=== PATIENT | male | born 1995 | race Two or more races ===

== ENCOUNTER 2017-03-04 19:45 | Emergency (ER) | payer MEDICAID ==
[~2017-03-04] VITALS: Ht 182.9 cm; Wt 141.5 kg
[~2017-03-04 19:45] MED LIST: ADEMPAS2.5 MG PO; AMOX TR-K CLV1 EAC2 ORAL; AMOXICILLIN125 MG ORAL; B COMPLEX1 EACH ORAL; BACTRIM DS TAB1 EAC1 ORAL; CIPRO500 MG PO; FONDAPARIN10 MG/0.8 SQ; GENTAMICIN SUL3.5 GM OP; IBUPROFEN600 MG ORAL; KEFLEX500 MG ORAL; NKM; ONDANSETRON ODT4 MG ORAL; PERCOCET 5-3251 EACH ORAL; PLAQUENIL200 MG ORAL
[2017-03-04] MEDS ORDERED: BACLOFEN10 MG ORAL (20:23)
[2017-03-04 20:30] VITALS: BP 153/91
[2017-03-04] MEDS ORDERED: Lidocaine 1% MPF 10mg/ml 5ml INJ ONE (20:30)
--- NOTE | 2017-03-04 20:30 | Emergency Room Report ---
History of Present Illness General Chief Complaint: Skin Rash/Abscess Source: Patient Present Illness HPI Patient's 21-year-old male who presented after increased right axillary abscess. The patient gradual onset of symptoms. Patient noted have no fever. He states he is diabetic. Patient had slightly increased pain. Patient been using warm compresses. He denied any purulent drainage. Allergies: Coded Allergies: No Known Allergies (Unverified , 08/11/12) Patient History Past Medical History: see triage record Reviewed Nursing Documentation: PMH: Agreed, PSxH: Agreed Nursing Documentation-PMH Past Medical History: No History, Except For Hx Cardiac Problems: Yes - LUPUS, CHF Hx Hypertension: Yes - PULMONARY HYPERTENTION Review of Systems All Other Systems: negative except mentioned in HPI Physical Exam Vital Signs Date Time Temp Pulse Resp B/P Pulse Ox O2 Delivery O2 Flow Rate FiO2 03/04/17 20:18 98.8 78 22 153/91 97 Room Air General Appearance: well appearing, no apparent distress Head: normocephalic, atraumatic ENT: hearing grossly normal, normal voice Neck: full range of motion, supple Respiratory: no respiratory distress, speaking full sentences Musculoskeletal: no calf tenderness Neurologic: normal gait Psychiatric: mood/affect normal Skin: no rash Procedures Incision and Drainage Incision and Drainage : Consent: Verbal Site: right axilla Blade Size: 11 I & D Procedure: betadine prep Wound Location: axilla Wound's Depth, Shape: superficial Wound Length (cm): 1 Wound Explored: clean Anesthesia: 1% Lidocaine Volume Anesthetic (ccs): 5 Splint Applied?: No Sling Applied?: No Patient Tolerated: Well Complications: None Medical Decision Making Diagnostic Impression: Primary Impression: Axillary abscess ER Course Patient presented for skin rash. Differential diagnosis included was not limited to abscess, cellulitis, folliculitis. Patient's benign exam and does not appear to require any further imaging or laboratory testing at this time. The patient consented for incision and drainage. Drained purulent material. The patient is advised to follow up with primary care doctor in 1-2 days. Patient is advised to return if any worsening condition or if any changes in status that are concerning. Last Vital Signs Date Time Temp Pulse Resp B/P Pulse Ox O2 Delivery O2 Flow Rate FiO2 03/04/17 20:18 98.8 78 22 153/91 97 Room Air Scripts Trimethoprim/Sulfamethoxazole 160/800* (BACTRIM DS TABLET*) 1 Each Tablet 1 TAB ORAL Q12H, #14 TAB 0 Refills Prov: Mumtaz Faustin 03/04/17 Cephalexin* (KEFLEX*) 500 Mg Capsule 500 MG ORAL Q6H, #28 CAP 0 Refills Prov: Mumtaz Faustin 03/04/17 Mumtaz Faustin Mar 04, 2017 20:30
[2017-03-04] MEDS ORDERED: Lidocaine 1% Plain 30 ml INJ ONE (20:31)
[2017-03-04] MEDS ORDERED: KEFLEX500 MG ORAL (20:40)
[2017-03-04] MEDS ORDERED: BACTRIM DS TAB1 EAC1 ORAL (20:40)
[2017-03-04 21:30] VITALS: BP 148/84
== END 2017-03-04 21:30 | disposition home or self-care (01) ==
LOC: EMR 20:33
DX: L02.411 Cutaneous abscess of right axilla (principal); M32.9 Systemic lupus erythematosus, unspecified
CPT/HCPCS: 10060; 99284; J2001

== ENCOUNTER 2017-04-19 23:58 | Emergency (ER) | payer MEDICAID ==
[~2017-04-19] VITALS: Ht 182.9 cm; Wt 141.5 kg
[~2017-04-19 23:58] MED LIST changes: +BACLOFEN10 MG ORAL
[2017-04-20] MEDS ORDERED: FONDAPARIN2.5 MG/0.5 SQ (00:14)
[2017-04-20] MEDS ORDERED: BACTRIM DS TAB1 EAC1 ORAL (00:49)
[2017-04-20] MEDS ORDERED: ACETAMINOPHEN-1 EAC1 ORAL (00:49)
[2017-04-20 00:55] VITALS: BP 113/75
[2017-04-20 00:58] VITALS: BP 113/75
--- NOTE | 2017-04-20 00:58 | Emergency Room Report ---
History of Present Illness General Chief Complaint: Skin Rash/Abscess Source: Patient Present Illness HPI 21YOM walk-in with pain/swelling and "boil" to left lower leg Histor of multiple visits here for abscesses Denies trauma to area Denies fever/chills Denies history of DM Allergies: Coded Allergies: No Known Allergies (Unverified , 08/11/12) Patient History Past Medical History: none Past Surgical History: none Pertinent Family History: none Social History: Denies: smoking, alcohol use, drug use Immunizations: UTD Reviewed Nursing Documentation: PMH: Agreed, PSxH: Agreed Nursing Documentation-PMH Past Medical History: No History, Except For Hx Cardiac Problems: No - PE, Pulmonary HTN, DVT left leg Hx Hypertension: Yes Hx Pacemaker: No - Antiphospholipid syndrome Review of Systems All Other Systems: negative except mentioned in HPI Physical Exam Vital Signs Date Time Temp Pulse Resp B/P (MAP) Pulse Ox O2 Delivery O2 Flow Rate FiO2 04/20/17 00:06 98.2 128 15 113/75 98 Room Air Sp02 EP Interpretation: reviewed, normal General Appearance: normal inspection, well appearing, no apparent distress, alert, GCS 15, non-toxic Head: normocephalic, atraumatic Eyes: bilateral eye PERRL, bilateral eye EOMI ENT: normal ENT inspection, hearing grossly normal, normal voice Neck: normal inspection, full range of motion, supple, no bony tend Respiratory: normal inspection, lungs clear, normal breath sounds, no respiratory distress, no retraction, no wheezing Cardiovascular #1: regular rate, rhythm, no edema Gastrointestinal: normal inspection, normal bowel sounds, non tender, soft, no guarding, no hernia Genitourinary: no CVA tenderness Musculoskeletal: normal inspection, back normal, normal range of motion, Tomás' s Sign negative Neurologic: normal inspection, alert, oriented x3, 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 Medical Decision Making Diagnostic Impression: Primary Impression: Cellulitis Qualified Codes: L03.116 - Cellulitis of left lower limb ER Course Cellulitis vs early abscess less likely Rx bactrim Initial dose given in ED Encouraged hot compress PMD followup DC home Last Vital Signs Date Time Temp Pulse Resp B/P (MAP) Pulse Ox O2 Delivery O2 Flow Rate FiO2 04/20/17 00:06 98.2 128 15 113/75 98 Room Air Status: improved Disposition: HOME, SELF-CARE Condition: Improved Scripts Acetaminophen With Codeine (T#3) (TYLENOL #3 TAB*) Y Tab 1 TAB ORAL Q8H Y for For Pain, #20 TAB Prov: AQUILES MATTSON M.D. 04/20/17 Trimethoprim/Sulfamethoxazole 160/800* (BACTRIM DS TABLET*) 1 Each Tablet 1 TAB ORAL Q12H for 7 Days, #13 TAB 0 Refills Prov: AQUILES MATTSON M.D. 04/20/17 Patient Instructions: Cellulitis, [id number] Additional Instructions: - Take all antibiotics until finished - Take T#3 as needed for severe pain - Keep applying warm compress towel to area 3x a day AQUILES MATTSON M.D. Apr 20, 2017 00:58
[2017-04-20] MEDS ORDERED: Bactrim DS (160mg/800mg) tab ORAL ONE (01:00)
[2017-04-20] MEDS ORDERED: Tylenol #3 tab (300mg/30mg) ORAL ONE (01:00)
== END 2017-04-20 00:58 | disposition home or self-care (01) ==
LOC: EMR 04-20 00:47
DX: L03.116 Cellulitis of left lower limb (principal); I10 Essential (primary) hypertension; Z86.718 Personal history of other venous thrombosis and embolism
CPT/HCPCS: 99284

== ENCOUNTER 2018-02-23 10:15 | Emergency (ER) | payer MEDICAID ==
[~2018-02-23] VITALS: Ht 182.9 cm; Wt 144.2 kg
[~2018-02-23 10:15] MED LIST changes: +ACETAMINOPHEN-1 EAC1 ORAL; +FONDAPARIN2.5 MG/0.5 SQ
[2018-02-23 10:28] VITALS: BP 142/84
[2018-02-23] MEDS ORDERED: Lidocaine 1% MPF 10mg/ml 5ml INJ ONE (10:45)
--- NOTE | 2018-02-23 11:32 | Emergency Room Report ---
History of Present Illness General Chief Complaint: Skin Rash/Abscess Source: Patient, Medical Record Present Illness HPI This patient states that he developed a pimple-like lesion at the entrance to his right nostril. He states that it did have a head. He states that yesterday it drained a small amount of pus. He states that since that time he has a fullness in his upper leg and face. He states that it is very tender. He states he doesn't feel well. He denies fever or chills. He denies nausea or vomiting. Denies headache or neck pain. He has no other complaints. Allergies: Coded Allergies: No Known Allergies (Unverified , 08/11/12) Patient History Past Medical History: see triage record, other - Antiphospholipid syndrome, PE , DVT Social History: Denies: smoking, alcohol use, drug use Reviewed Nursing Documentation: PMH: Agreed; PSxH: Agreed Nursing Documentation-PMH Past Medical History: No History, Except For Hx Cardiac Problems: No - PE, Pulmonary HTN, DVT left leg Hx Hypertension: Yes Hx Pacemaker: No - Antiphospholipid syndrome Review of Systems All Other Systems: negative except mentioned in HPI Physical Exam Vital Signs Date Time Temp Pulse Resp B/P (MAP) Pulse Ox O2 Delivery O2 Flow Rate FiO2 02/23/18 10:16 99.1 99 18 142/84 95 Room Air 99.1 Sp02 EP Interpretation: reviewed, normal General Appearance: no apparent distress, alert, GCS 15, non-toxic Head: normocephalic, atraumatic Eyes: bilateral eye normal inspection, bilateral eye PERRL ENT: hearing grossly normal, normal pharynx, no angioedema, normal voice, other - Indurated area with a small amount of swelling at the R. nare and upper lip. TTP. Firm, no fluctuance. No erythema. Neck: full range of motion, supple/symm/no masses Respiratory: chest non-tender, lungs clear, normal breath sounds, no respiratory distress, no retraction, no accessory muscle use, speaking full sentences Cardiovascular #1: regular rate, rhythm, no edema Gastrointestinal: normal bowel sounds, non tender, soft, non-distended, no guarding, no rebound Rectal: deferred Musculoskeletal: back normal, gait/station normal, normal range of motion, non- tender Neurologic: alert, oriented x3, responsive, motor strength/tone normal, sensory intact, speech normal Psychiatric: judgement/insight normal, memory normal, mood/affect normal, no suicidal/homicidal ideation Skin: warm/dry, well hydrated, other - See ENT exam Lymphatic: no adenopathy Procedures Incision and Drainage Incision and Drainage : Consent: Verbal Site: Just at the entrance to the R. nare I & D Procedure: betadine prep Wound Location: head Anesthesia: 1% Lidocaine Volume Anesthetic (ccs): 1 Complications: None Progress An 18-gauge needle was used for a needle aspiration, which I chose secondary to the location on the patient's face for cosmetic reasons. The needle aspiration expressed nothing. Medical Decision Making Diagnostic Impression: Primary Impression: Cellulitis ER Course Patient has an area under a pimple that appears slightly swollen. There could be a mild cellulitis, although, there is no erythema or warmth. I did attempt a needle aspiration and there was no purulence. I educated the patient on the importance of warm compresses. I will start the patient on a course of antibiotics. The patient is also instructed to follow-up closely with his primary care physician. The patient is given close return precautions and f/u instructions. Last Vital Signs Date Time Temp Pulse Resp B/P (MAP) Pulse Ox O2 Delivery O2 Flow Rate FiO2 02/23/18 10:28 99.1 18 142/84 95 Room Air 99.1 02/23/18 10:16 99 Status: improved Condition: Improved Referrals: [facility],REFERRING (PCP) Maya Morales DO Feb 23, 2018 11:32
[2018-02-23] MEDS ORDERED: IBUPROFEN800 MG ORAL (11:35)
[2018-02-23] MEDS ORDERED: DOXYCYCLINE MO100 MG ORAL (11:35)
[2018-02-23 11:41] VITALS: BP 131/82
== END 2018-02-23 11:44 | disposition home or self-care (01) ==
LOC: EMR 10:30
DX: J34.0 Abscess, furuncle and carbuncle of nose (principal); I10 Essential (primary) hypertension; Z86.718 Personal history of other venous thrombosis and embolism
CPT/HCPCS: 10021; 99283; Z7502; 10060

== ENCOUNTER 2020-01-17 11:49 | Inpatient (IN) | payer MEDICAID ==
[~2020-01-17] VITALS: Ht 180.3 cm; Wt 142.0 kg
[~2020-01-17 11:49] MED LIST changes: +DOXYCYCLINE MO100 MG ORAL; +IBUPROFEN800 MG ORAL
[2020-01-17 12:00] VITALS: BP 148/98
[2020-01-17 12:51] LABS: ANION GAP 13 mmol/L (5-15); BLOOD UREA NITROGEN 9 mg/dL (7-18); CALCIUM 8.9 MG/DL (8.5-10.1); CARBON DIOXIDE 21 MMOL/L (21-32); CHLORIDE 106 MMOL/L (98-107); CREATININE 1.1 MG/DL (0.55-1.30); POTASSIUM 3.8 MMOL/L (3.5-5.1); SODIUM 140 MMOL/L (136-145)
[2020-01-17] MEDS ORDERED: Omnipaque 350 100ml vial INJ PRN (13:00)
[2020-01-17 13:02] LABS: ALANINE AMINOTRANSFERASE 98 U/L (12-78); ALBUMIN 3.9 G/DL (3.4-5.0); ALBUMIN/GLOBULIN RATIO 1.1 (1.0-2.7); ALKALINE PHOSPHATASE 64 U/L (46-116); ASPARTATE AMINO TRANSFERASE 62 U/L (15-37); BILIRUBIN,TOTAL 2.2 MG/DL (0.2-1.0); CREATINE KINASE 173 U/L (26-308)
[2020-01-17 13:07] LABS: APPEARANCE,URINE CLEAR; BILIRUBIN, URINE NEGATIVE (NEGATIVE); GLUCOSE, URINE (UA) NEGATIVE (NEGATIVE); KETONES,URINE NEGATIVE (NEGATIVE); LEUKOCYTE ESTERASE ,URINE 1+ (NEGATIVE); NITRITE,URINE NEGATIVE (NEGATIVE); PH,URINE 6 (4.5-8.0); PROTEIN,URINE 3+ (NEGATIVE); UROBILINOGEN,URINE 4 MG/DL (0.0-1.0)
[2020-01-17 13:10] LABS: INR 1.2 (0.9-1.1)
[2020-01-17 13:11] LABS: EOSINOPHILS % (AUTO) 0.3 % (0.0-3.0); HEMATOCRIT 50.6 % (42.0-52.0); MEAN CORPUSCULAR VOLUME 97 FL (80-99); MONOCYTES % (AUTO) 6.7 % (1.0-10.0); PLATELET COUNT 127 K/UL (150-450); RED CELL DISTRIBUTION WIDTH 13.4 % (11.6-14.8); WHITE BLOOD COUNT 10.2 K/UL (4.8-10.8)
[2020-01-17 13:13] LABS: COLOR,URINE YELLOW
--- NOTE | 2020-01-17 14:01 | Diagnostic Imaging Report ---
. Indication: Reason For Exam: CP Technique: XRAY Chest 1v. Comparison: 01/26/2016 Findings: The cardiomediastinal silhouette is stable. There are no acute infiltrates. Impression: No acute abnormality. .
--- NOTE | 2020-01-17 14:05 | Emergency Room Report ---
History of Present Illness General Chief Complaint: Chest Pain Source: Patient (Maya Morales DO) Present Illness HPI This patient states that for the past few weeks he has had shortness of breath. He states his symptoms are worse with exertion. He states he is also had chest tightness. He had an episode of nausea yesterday after climbing stairs. He denies recent illness. He denies fever or chills. He denies nausea or vomiting. He denies cough or congestion. He does have a history of antiphospholipid syndrome and is on Lovenox for a previously diagnosed PE and DVT. This was several years ago. He has no other complaints. 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: No (Maya Morales DO) Patient History Past Medical History: see triage record, HTN, other - PE, DVT, antiphospholipid syndrome Social History: Reports: drug use - THC; Denies: smoking, alcohol use Reviewed Nursing Documentation: PMH: Agreed; PSxH: Agreed (Maya Morales DO) Nursing Documentation-PMH Hx Cardiac Problems: No - PE, Pulmonary HTN, DVT left leg Hx Hypertension: Yes Hx Pacemaker: No - Antiphospholipid syndrome (Maya Morales DO) Review of Systems All Other Systems: negative except mentioned in HPI (Maya Morales DO) Physical Exam Vital Signs Date Time Temp Pulse Resp B/P (MAP) Pulse Ox O2 Delivery O2 Flow Rate FiO2 01/17/20 11:56 98.2 111 22 141/100 (114) 93 Room Air Sp02 EP Interpretation: reviewed, normal General Appearance: no apparent distress, alert, GCS 15, non-toxic, obese Head: normocephalic, atraumatic Eyes: bilateral eye normal inspection, bilateral eye PERRL ENT: hearing grossly normal, normal pharynx, no angioedema, normal voice Neck: full range of motion, supple/symm/no masses Respiratory: chest non-tender, lungs clear, normal breath sounds, no respiratory distress, no retraction, no accessory muscle use, speaking full sentences Cardiovascular #1: regular rate, rhythm, no edema Gastrointestinal: normal bowel sounds, non tender, soft, non-distended, no guarding, no rebound Rectal: deferred Musculoskeletal: back normal, normal range of motion, gait/station normal, non- tender Neurologic: alert, motor strength/tone normal, oriented x3, sensory intact, responsive, speech normal Psychiatric: judgement/insight normal, memory normal, mood/affect normal, no suicidal/homicidal ideation Skin: no rash, normal color (Maya Morales DO) Procedures Critical Care Time Critical Care Time 70 minutes for critical findings concerning for acute decompensation respiratory failure not including any procedural time (Arcenio Garcia DO) Medical Decision Making Diagnostic Impression: Primary Impression: Bilateral pulmonary embolism ER Course This patient presents with chest pain and shortness of breath. He has high risk for acute coronary syndrome, PE. He also presents during this patient was evaluated in the context of the global COVID-19 pandemic, which necessitated consideration that the patient might be at risk for infection with the SARS- COVID-2 virus that causes COVID-19. Institutional protocols and algorithms that pertain to the evaluation of patients at risk for COVID-19 and the state of rapid change based on information released by multiple regulatory bodies including the CDC and federal and state organizations. These policies and algorithms were followed during the patient's care in the ED. also concerning is the patient had an abnormal EKG that was nonspecific but still concerning for possible cardiac or pulmonary etiology of his symptoms. At this time, the patient is pending CT of the chest. The patient is turned over to Dr. Garcia. Final disposition is pending. I anticipate at the very least admit to rule out acute coronary syndrome even if the CT is negative. Laboratory Tests Test 01/17/20 12:13 01/17/20 12:29 White Blood Count 10.2 K/UL (4.8-10.8) Red Blood Count 5.20 M/UL (4.70-6.10) Hemoglobin 16.0 G/DL (14.2-18.0) Hematocrit 50.6 % (42.0-52.0) Mean Corpuscular Volume 97 FL (80-99) Mean Corpuscular Hemoglobin 30.7 PG (27.0-31.0) Mean Corpuscular Hemoglobin Concent 31.5 G/DL (32.0-36.0) L Red Cell Distribution Width 13.4 % (11.6-14.8) Platelet Count 127 K/UL (150-450) L Mean Platelet Volume 8.6 FL (6.5-10.1) Neutrophils (%) (Auto) 73.0 % (45.0-75.0) Lymphocytes (%) (Auto) 19.0 % (20.0-45.0) L Monocytes (%) (Auto) 6.7 % (1.0-10.0) Eosinophils (%) (Auto) 0.3 % (0.0-3.0) Basophils (%) (Auto) 1.0 % (0.0-2.0) Prothrombin Time 13.3 SEC (9.30-11.50) H Prothrombin Time INR 1.2 (0.9-1.1) H Activated Partial Thromboplast Time 34 SEC (23-33) H D-Dimer 2.43 mg/L FEU (0.00-0.49) H Sodium Level 140 MMOL/L (136-145) Potassium Level 3.8 MMOL/L (3.5-5.1) Chloride Level 106 MMOL/L (98-107) Carbon Dioxide Level 21 MMOL/L (21-32) Anion Gap 13 mmol/L (5-15) Blood Urea Nitrogen 9 mg/dL (7-18) Creatinine 1.1 MG/DL (0.55-1.30) Estimated Glomerular Filtration Rate > 60 mL/min (>60) Glucose Level 117 MG/DL (74-106) H Calcium Level 8.9 MG/DL (8.5-10.1) Total Bilirubin 2.2 MG/DL (0.2-1.0) H Direct Bilirubin Pending Aspartate Amino Transferase (AST) 62 U/L (15-37) H Alanine Aminotransferase (ALT) 98 U/L (12-78) H Alkaline Phosphatase 64 U/L (46-116) Total Creatine Kinase 173 U/L (26-308) Troponin I 0.012 ng/mL (0.000-0.056) C-Reactive Protein, Quantitative 4.0 mg/dL (0.00-0.90) H Total Protein 7.4 G/DL (6.4-8.2) Albumin 3.9 G/DL (3.4-5.0) Globulin 3.5 g/dL Albumin/Globulin Ratio 1.1 (1.0-2.7) Urine Color Yellow Urine Appearance Clear Urine pH 6 (4.5-8.0) Urine Specific [place] 1.015 (1.005-1.035) Urine Protein 3+ (NEGATIVE) H Urine Glucose (UA) Negative (NEGATIVE) Urine Ketones Negative (NEGATIVE) Urine Blood Negative (NEGATIVE) Urine Nitrite Negative (NEGATIVE) Urine Bilirubin Negative (NEGATIVE) Urine Urobilinogen 4 MG/DL (0.0-1.0) H Urine Leukocyte Esterase 1+ (NEGATIVE) H Urine RBC 0 /HPF (0 - 0) Urine WBC 0-2 /HPF (0 - 0) Urine Squamous Epithelial Cells Occasional /LPF Urine Bacteria Occasional /HPF (NONE) Urine Mucus Occasional /LPF Urine Opiates Screen Negative (NEGATIVE) Urine Barbiturates Screen Negative (NEGATIVE) Phencyclidine (PCP) Screen Negative (NEGATIVE) Urine Amphetamines Screen Negative (NEGATIVE) Urine Benzodiazepines Screen Negative (NEGATIVE) Urine Cocaine Screen Negative (NEGATIVE) Urine Marijuana (THC) Screen Positive (NEGATIVE) H (Maya Morales DO) ER Course Please refer to the initial note for the history exam and presentation Patient was pending CT imaging at this time I do get a call from radiology patient does have bilateral pulmonary emboli with right heart strain Patient remains hemodynamically stable saturating appropriately Patient is on 2 L nasal cannula heparin bolus and drip have been initiated Patient upgraded to higher level of care inpatient Labs Test 01/17/20 12:13 01/17/20 12:29 White Blood Count 10.2 K/UL (4.8-10.8) Red Blood Count 5.20 M/UL (4.70-6.10) Hemoglobin 16.0 G/DL (14.2-18.0) Hematocrit 50.6 % (42.0-52.0) Mean Corpuscular Volume 97 FL (80-99) Mean Corpuscular Hemoglobin 30.7 PG (27.0-31.0) Mean Corpuscular Hemoglobin Concent 31.5 G/DL (32.0-36.0) Red Cell Distribution Width 13.4 % (11.6-14.8) Platelet Count 127 K/UL (150-450) Mean Platelet Volume 8.6 FL (6.5-10.1) Neutrophils (%) (Auto) 73.0 % (45.0-75.0) Lymphocytes (%) (Auto) 19.0 % (20.0-45.0) Monocytes (%) (Auto) 6.7 % (1.0-10.0) Eosinophils (%) (Auto) 0.3 % (0.0-3.0) Basophils (%) (Auto) 1.0 % (0.0-2.0) Prothrombin Time 13.3 SEC (9.30-11.50) Prothromb Time International Ratio 1.2 (0.9-1.1) Activated Partial Thromboplast Time 34 SEC (23-33) D-Dimer 2.43 mg/L FEU (0.00-0.49) Sodium Level 140 MMOL/L (136-145) Potassium Level 3.8 MMOL/L (3.5-5.1) Chloride Level 106 MMOL/L (98-107) Carbon Dioxide Level 21 MMOL/L (21-32) Anion Gap 13 mmol/L (5-15) Blood Urea Nitrogen 9 mg/dL (7-18) Creatinine 1.1 MG/DL (0.55-1.30) Estimat Glomerular Filtration Rate > 60 mL/min (>60) Glucose Level 117 MG/DL (74-106) Calcium Level 8.9 MG/DL (8.5-10.1) Total Bilirubin 2.2 MG/DL (0.2-1.0) Direct Bilirubin 0.6 MG/DL (0.0-0.3) Aspartate Amino Transf (AST/SGOT) 62 U/L (15-37) Alanine Aminotransferase (ALT/SGPT) 98 U/L (12-78) Alkaline Phosphatase 64 U/L (46-116) Total Creatine Kinase 173 U/L (26-308) Troponin I 0.012 ng/mL (0.000-0.056) C-Reactive Protein, Quantitative 4.0 mg/dL (0.00-0.90) Total Protein 7.4 G/DL (6.4-8.2) Albumin 3.9 G/DL (3.4-5.0) Globulin 3.5 g/dL Albumin/Globulin Ratio 1.1 (1.0-2.7) Urine Color Yellow Urine Appearance Clear Urine pH 6 (4.5-8.0) Urine Specific [place] 1.015 (1.005-1.035) Urine Protein 3+ (NEGATIVE) Urine Glucose (UA) Negative (NEGATIVE) Urine Ketones Negative (NEGATIVE) Urine Blood Negative (NEGATIVE) Urine Nitrite Negative (NEGATIVE) Urine Bilirubin Negative (NEGATIVE) Urine Urobilinogen 4 MG/DL (0.0-1.0) Urine Leukocyte Esterase 1+ (NEGATIVE) Urine RBC 0 /HPF (0 - 0) Urine WBC 0-2 /HPF (0 - 0) Urine Squamous Epithelial Cells Occasional /LPF Urine Bacteria Occasional /HPF (NONE) Urine Mucus Occasional /LPF Urine Opiates Screen Negative (NEGATIVE) Urine Barbiturates Screen Negative (NEGATIVE) Phencyclidine (PCP) Screen Negative (NEGATIVE) Urine Amphetamines Screen Negative (NEGATIVE) Urine Benzodiazepines Screen Negative (NEGATIVE) Urine Cocaine Screen Negative (NEGATIVE) Urine Marijuana (THC) Screen Positive (NEGATIVE) (Arcenio Garcia DO) EKG Diagnostic Results Rate: tachycardiac - S.tachycardia ST Segments: other - NSST findings. Qwave in III (Maya Morales [facility]) Rhythm Strip Diag. Results EP Interpretation: yes Rate: 90's Rhythm: NSR, no PVC's, no ectopy (Maya Morales Narendra ) EP Interpretation: yes Rate: 110 Rhythm: no PVC's, no ectopy, other - Sinus tach nonspecific ST changes (Arcenio Garcia DO) Chest X-Ray Diagnostic Results Chest X-Ray Diagnostic Results : Chest X-Ray Ordered: Yes # of Views/Limited/Complete: 1 View Indication: Chest Pain EP Interpretation: Yes Interpretation: no consolidation, no effusion, no pneumothorax, no acute cardiopulmonary disease Impression: No acute disease Electronically Signed by: Maya Morales DO ([facility]) Chest X-Ray Diagnostic Results : Chest X-Ray Ordered: Yes # of Views/Limited/Complete: 1 View Indication: Chest Pain EP Interpretation: Yes Interpretation: no consolidation, no effusion, no pneumothorax Impression: No acute disease Electronically Signed by: Arcenio Garcia DO (Arcenio Garcia DO) CT/MRI/US Diagnostic Results CT/MRI/US Diagnostic Results : Imaging Test Ordered: CTA Chest Impression Pending. (Maya Morales DO) CT/MRI/US Diagnostic Results : Impression CTA chestImpression: Extensive bilateral pulmonary emboli with evidence of right heart strain. Scarring or atelectasis in the left upper lobe. Scarring or atelectasis in the right base. Small superior mediastinal lymph nodes, significance uncertain. (Arcenio Garcia DO) Last Vital Signs Date Time Temp Pulse Resp B/P (MAP) Pulse Ox O2 Delivery O2 Flow Rate FiO2 01/17/20 12:00 98.2 118 20 148/98 95 Room Air (Maya Morales DO) Status: improved (Arcenio Garcia DO) Disposition: ADMITTED INPATIENT Condition: Critical Referrals: NON PHYSICIAN (PCP) Maya Morales DO Jan 17, 2020 14:05 Arcenio Garcia DO Jan 17, 2020 16:07
[2020-01-17 14:09] LABS: BILIRUBIN,DIRECT 0.6 MG/DL (0.0-0.3)
[2020-01-17 15:49] VITALS: BP 138/92
[2020-01-17] MEDS ORDERED: Heparin 25,000u/D5W 500ml 500 ML IV SCH ×2 (16:00→19:15)
[2020-01-17] MEDS ORDERED: Heparin 5000 units/ml inj IV ONE (16:00)
--- NOTE | 2020-01-17 16:05 | Diagnostic Imaging Report ---
Indication: Reason For Exam: PE Technique: CT angiography performed utilizing thin section spiral CT and bolus contrast injection. Axial, coronal, and sagittal images were generated. Maximum intensity projections (MIPs) were obtained in the coronal and sagittal planes. Dose: Total Dose Length Product - DLP [address] Dose Index - CTDIvol(s) 101 mGy. Automated exposure control was utilized for dose reduction. Findings: The mediastinum demonstrates small nodes. The aorta is normal in caliber. There is no evidence of aortic aneurysm. There are bilateral pulmonary emboli essentially involving all lobes. When pulmonary artery is enlarged. There is also enlargement of the right ventricle. Some atelectasis is noted in the right lung base. There is some scarring or atelectasis in the left upper lobe. No evidence of pleural fluid. The liver is diffusely low density. Impression: Extensive bilateral pulmonary emboli with evidence of right heart strain. Scarring or atelectasis in the left upper lobe. Scarring or atelectasis in the right base. Small superior mediastinal lymph nodes, significance uncertain. Critiacal Report given to Dr. Estes in the emergency room 01/17/2020 at 4:[address] scanner at [facility] is accredited by the [employer] and the scans are performed using protocols designed to limit radiation exposure to as low as reasonably achievable to attain images of sufficient resolution adequate for diagnostic evaluation.
[2020-01-17 17:00] VITALS: BP 155/104
[2020-01-17] MEDS ORDERED: Acetaminophen 500mg (ES) tab ORAL PRN (18:45)
[2020-01-17 20:00] VITALS: BP 134/90
[2020-01-17] MEDS ORDERED: LISINOPRIL20 MG ORAL (20:16)
[2020-01-17] MEDS ORDERED: BACLOFEN10 MG ORAL (20:17)
[2020-01-18] VITALS: BP 145/89
[2020-01-18] MEDS ORDERED: Heparin 25,000u/D5W 500ml 500 ML IV SCH ×3 (02:00→20:15)
[2020-01-18] MEDS ORDERED: Heparin 5000 units/ml inj IV SCH ×3 (02:15→17:15)
[2020-01-18 04:00] VITALS: BP 139/95
[2020-01-18 05:46] LABS: BASOPHILS % (AUTO) 1.3 % (0.0-2.0); EOSINOPHILS % (AUTO) 0.7 % (0.0-3.0); HEMATOCRIT 47.1 % (42.0-52.0); HEMOGLOBIN 14.8 G/DL (14.2-18.0); LYMPHOCYTES % (AUTO) 31.8 % (20.0-45.0); MEAN CORPUSCULAR VOLUME 98 FL (80-99); MONOCYTES % (AUTO) 8.4 % (1.0-10.0); PLATELET COUNT 109 K/UL (150-450); RED BLOOD COUNT 4.82 M/UL (4.70-6.10); RED CELL DISTRIBUTION WIDTH 13.2 % (11.6-14.8); WHITE BLOOD COUNT 9.1 K/UL (4.8-10.8)
[2020-01-18 06:17] LABS: ALANINE AMINOTRANSFERASE 84 U/L (12-78); ALBUMIN 3.5 G/DL (3.4-5.0); ALBUMIN/GLOBULIN RATIO 1.2 (1.0-2.7); ALKALINE PHOSPHATASE 55 U/L (46-116); ANION GAP 12 mmol/L (5-15); ASPARTATE AMINO TRANSFERASE 51 U/L (15-37); BILIRUBIN,TOTAL 1.9 MG/DL (0.2-1.0); BLOOD UREA NITROGEN 9 mg/dL (7-18); CALCIUM 8.9 MG/DL (8.5-10.1); CARBON DIOXIDE 23 MMOL/L (21-32); CHLORIDE 107 MMOL/L (98-107); CREATININE 1.1 MG/DL (0.55-1.30); POTASSIUM 3.8 MMOL/L (3.5-5.1); SODIUM 142 MMOL/L (136-145)
[2020-01-18 06:55] LABS: BILIRUBIN,DIRECT 0.6 MG/DL (0.0-0.3)
--- NOTE | 2020-01-18 07:39 | Cardiac Electrophysiology PN ---
Subjective Subjective [id number] Objective Last 24 Hour Vital Signs Date Time Temp Pulse Resp B/P (MAP) Pulse Ox O2 Delivery O2 Flow Rate FiO2 01/18/20 04:00 98.0 102 20 139/95 (110) 99 01/18/20 04:00 2.0 01/18/20 04:00 Nasal Cannula 2.0 01/18/20 03:37 98 01/18/20 00:00 97.8 110 20 145/89 (107) 98 01/18/20 00:00 Nasal Cannula 2.0 01/18/20 00:00 107 01/18/20 00:00 2.0 01/17/20 20:00 2.0 01/17/20 20:00 97.5 106 20 134/90 (105) 98 01/17/20 20:00 Nasal Cannula 2.0 01/17/20 20:00 105 01/17/20 18:06 Room Air 01/17/20 17:00 97.2 113 22 155/104 (121) 97 01/17/20 17:00 Room Air 01/17/20 16:56 98.2 103 20 131/91 96 Room Air 01/17/20 15:49 98.2 103 20 138/92 96 Room Air 01/17/20 12:00 98.2 118 20 148/98 95 Room Air 01/17/20 12:00 118 20 Room Air 01/17/20 11:56 98.2 111 22 141/100 (114) 93 Room Air Intake and Output 01/17/20 01/18/20 19:00 07:00 Intake Total 528.24 ml Balance 528.24 ml Intake IV Total 528.24 ml # Voids 2 # Bowel Movements 1 Laboratory Tests Test 01/17/20 12:13 01/17/20 12:29 01/18/20 01:18 01/18/20 03:30 White Blood Count 10.2 K/UL (4.8-10.8) 9.1 K/UL (4.8-10.8) Red Blood Count 5.20 M/UL (4.70-6.10) 4.82 M/UL (4.70-6.10) Hemoglobin 16.0 G/DL (14.2-18.0) 14.8 G/DL (14.2-18.0) Hematocrit 50.6 % (42.0-52.0) 47.1 % (42.0-52.0) Mean Corpuscular Volume 97 FL (80-99) 98 FL (80-99) Mean Corpuscular Hemoglobin 30.7 PG (27.0-31.0) 30.7 PG (27.0-31.0) Mean Corpuscular Hemoglobin Concent 31.5 G/DL (32.0-36.0) L 31.3 G/DL (32.0-36.0) L Red Cell Distribution Width 13.4 % (11.6-14.8) 13.2 % (11.6-14.8) Platelet Count 127 K/UL (150-450) L 109 K/UL (150-450) L Mean Platelet Volume 8.6 FL (6.5-10.1) 8.1 FL (6.5-10.1) Neutrophils (%) (Auto) 73.0 % (45.0-75.0) 58.0 % (45.0-75.0) Lymphocytes (%) (Auto) 19.0 % (20.0-45.0) L 31.8 % (20.0-45.0) Monocytes (%) (Auto) 6.7 % (1.0-10.0) 8.4 % (1.0-10.0) Eosinophils (%) (Auto) 0.3 % (0.0-3.0) 0.7 % (0.0-3.0) Basophils (%) (Auto) 1.0 % (0.0-2.0) 1.3 % (0.0-2.0) Prothrombin Time 13.3 SEC (9.30-11.50) H Prothromb Time International Ratio 1.2 (0.9-1.1) H Activated Partial Thromboplast Time 34 SEC (23-33) H 53 SEC (23-33) H D-Dimer 2.43 mg/L FEU (0.00-0.49) H Sodium Level 140 MMOL/L (136-145) 142 MMOL/L (136-145) Potassium Level 3.8 MMOL/L (3.5-5.1) 3.8 MMOL/L (3.5-5.1) Chloride Level 106 MMOL/L (98-107) 107 MMOL/L (98-107) Carbon Dioxide Level 21 MMOL/L (21-32) 23 MMOL/L (21-32) Anion Gap 13 mmol/L (5-15) 12 mmol/L (5-15) Blood Urea Nitrogen 9 mg/dL (7-18) 9 mg/dL (7-18) Creatinine 1.1 MG/DL (0.55-1.30) 1.1 MG/DL (0.55-1.30) Estimat Glomerular Filtration Rate > 60 mL/min (>60) > 60 mL/min (>60) Glucose Level 117 MG/DL (74-106) H 109 MG/DL (74-106) H Calcium Level 8.9 MG/DL (8.5-10.1) 8.9 MG/DL (8.5-10.1) Total Bilirubin 2.2 MG/DL (0.2-1.0) H 1.9 MG/DL (0.2-1.0) H Direct Bilirubin 0.6 MG/DL (0.0-0.3) H 0.6 MG/DL (0.0-0.3) H Aspartate Amino Transf (AST/SGOT) 62 U/L (15-37) H 51 U/L (15-37) H Alanine Aminotransferase (ALT/SGPT) 98 U/L (12-78) H 84 U/L (12-78) H Alkaline Phosphatase 64 U/L (46-116) 55 U/L (46-116) Total Creatine Kinase 173 U/L (26-308) Troponin I 0.012 ng/mL (0.000-0.056) C-Reactive Protein, Quantitative 4.0 mg/dL (0.00-0.90) H Total Protein 7.4 G/DL (6.4-8.2) 6.5 G/DL (6.4-8.2) Albumin 3.9 G/DL (3.4-5.0) 3.5 G/DL (3.4-5.0) Globulin 3.5 g/dL 3.0 g/dL Albumin/Globulin Ratio 1.1 (1.0-2.7) 1.2 (1.0-2.7) Urine Color Yellow Urine Appearance Clear Urine pH 6 (4.5-8.0) Urine Specific [place] 1.015 (1.005-1.035) Urine Protein 3+ (NEGATIVE) H Urine Glucose (UA) Negative (NEGATIVE) Urine Ketones Negative (NEGATIVE) Urine Blood Negative (NEGATIVE) Urine Nitrite Negative (NEGATIVE) Urine Bilirubin Negative (NEGATIVE) Urine Urobilinogen 4 MG/DL (0.0-1.0) H Urine Leukocyte Esterase 1+ (NEGATIVE) H Urine RBC 0 /HPF (0 - 0) Urine WBC 0-2 /HPF (0 - 0) Urine Squamous Epithelial Cells Occasional /LPF Urine Bacteria Occasional /HPF (NONE) Urine Mucus Occasional /LPF Urine Opiates Screen Negative (NEGATIVE) Urine Barbiturates Screen Negative (NEGATIVE) Phencyclidine (PCP) Screen Negative (NEGATIVE) Urine Amphetamines Screen Negative (NEGATIVE) Urine Benzodiazepines Screen Negative (NEGATIVE) Urine Cocaine Screen Negative (NEGATIVE) Urine Marijuana (THC) Screen Positive (NEGATIVE) H Microbiology Date/Time Source Procedure Growth Status 01/17/20 14:10 Nasopharynx SARS-CoV-2 RdRp Gene Assay - Final Complete Cj Daley MD Jan 18, 2020 07:39
[2020-01-18 08:00] VITALS: BP 129/91
[2020-01-18] MEDS ORDERED: Lisinopril 20mg tab ORAL SCH (09:00)
[2020-01-18] MEDS: Heparin 25,000u/D5W 500ml 500 ML IV SCH ×2 (10:16→14:54)
[2020-01-18 12:00] VITALS: BP 147/103
--- NOTE | 2020-01-18 12:00 | Consultation ---
DATE OF CONSULTATION: 01/18/2020 CARDIOLOGY CONSULTATION CONSULTING PHYSICIAN: Cj Daley MD. REFERRING PHYSICIAN: Arcenio Hayes MD. REASON FOR CONSULTATION: Chest pain and shortness of breath in a patient with pulmonary embolism. HISTORY OF PRESENT ILLNESS: The patient is a 24-year-old gentleman who presented to the emergency room with several weeks of shortness of breath that has been getting worse with exertion. The patient also had chest tightness and has little bit of nausea while climbing the stairs. The patient has a history of antiphospholipid syndrome and is on Lovenox for pulmonary embolism and DVT that was several years ago. The patient was admitted and his blood pressure was 141/100 and pulse of 111. Cardiology consultation was obtained for further evaluation. REVIEW OF SYSTEMS: Negative other than what was mentioned in the history of present illness. PAST MEDICAL HISTORY: As mentioned above. FAMILY HISTORY: Noncontributory. SOCIAL HISTORY: He lives at home. Does not smoke or drink alcohol. PHYSICAL EXAMINATION: VITAL SIGNS: Show blood pressure of 139/95, pulse is 102, respirations 18, and temperature 98. HEAD AND NECK: Showed no JVD. LUNGS: Coarse rhonchi. CARDIOVASCULAR: Shows regular S1 and S2 with no gallop. ABDOMEN: Soft. EXTREMITIES: No pitting edema. LABORATORY AND DIAGNOSTIC DATA: His labs show white count 9.1, hematocrit of 14.9, hematocrit of 47.1, and platelet count of 109,000. Sodium 142, potassium 3.8, BUN of 9, creatinine 1.1, and glucose of 109. Troponin is negative. Urine toxicology is positive for marijuana. D-dimer is 2.43. His chest CT angiogram showed extensive bilateral pulmonary emboli with right heart strain. ASSESSMENT AND PLAN: 1. Shortness of breath and extensive bilateral pulmonary embolus. The patient was already started on heparin drip per pharmacy. Dr. Mijares and will also be following the patient. We will get an echocardiogram to evaluate for RV strain, RV pressure, and LV systolic function. 2. Hypertension. The patient is on lisinopril 40 mg daily. I will add p.r.n. clonidine to his medical regimen. 3. Bifascicular block with right bundle-branch block and left anterior fascicular block. 4. Old inferior wall myocardial infarction. Again, we will get an echocardiogram for further evaluation. Thank you very much for allowing me to participate in the care of this patient. Please do not hesitate to contact me if you have any questions regarding my evaluation. Cj Daley M.D. DR: AILYN JOB#: [id number] CC:
--- NOTE | 2020-01-18 13:45 | Consultation ---
DATE OF CONSULTATION: 01/18/2020 PULMONARY CONSULTATION CONSULTING PHYSICIAN: Rafy Quiroga MD. HISTORY OF PRESENT ILLNESS: This is a 24-year-old male with history of antiphospholipid syndrome, on Lovenox. He has previously had PE and DVT. He came again to the hospital with chest pain and shortness of breath. He states he is feeling better since being in the hospital. The patient denies any substance abuse or marijuana. PAST MEDICAL HISTORY: He has a history of hypertension, previous PE/DVT and antiphospholipid syndrome. PAST SURGICAL HISTORY: None. REVIEW OF SYSTEMS: Denies any headaches, hematemesis, melena, or hematochezia. PHYSICAL EXAMINATION: GENERAL: Reveals a 24-year-old male. VITAL SIGNS: Blood pressure at this time is 120/90, heart rate 104, respirations are 20. O2 saturation 100% on 2 L of oxygen. HEENT: Unremarkable. LUNGS: Clear breath sounds bilaterally. ABDOMEN: Soft. EXTREMITIES: There is no edema. LABORATORY DATA: Lab testing shows normal CBC and BMP with bilirubin 2.2 yesterday, now 1.9. AST and ALT mildly elevated. Troponin is negative. CRP is 4. INR 1.2. He is on a heparin drip currently with a PTT of 139. Rapid COVID-19 testing is negative. IMAGING STUDIES: The patient underwent a CT chest angio which showed extensive bilateral pulmonary emboli. IMPRESSION: 1. Anticoagulation failure, outpatient. 2. Acute bilateral pulmonary embolism. 3. Antiphospholipid syndrome. DISCUSSION: Admit to the hospital. The patient will likely need anticoagulation with Coumadin. Defer to Hematology. Currently, he is saturating well on low-flow oxygen and is normotensive. We will follow carefully. Rafy Quiroga M.D. DR: HANK JOB#: [id number] CC:
--- NOTE | 2020-01-18 13:56 | Consultation ---
History of Present Illness General Chief Complaint: Chest Pain Present Illness Allergies: Coded Allergies: No Known Allergies (Unverified , 08/11/12) Medication History Scheduled Amoxicillin (Amoxicillin), 125 MG ORAL THREE TIMES A DAY, (Reported) Amoxicillin/Potassium Clav 875-125 Mg Tab* (Amox Tr-K Clv 875-125 Mg Tab*), 1 TAB ORAL EVERY 12 HOURS, (Reported) Baclofen* (Baclofen*), 10 MG ORAL DAILY, (Reported) Baclofen* (Baclofen*), 10 MG ORAL QHS, (Reported) Cephalexin* (Keflex*), 500 MG ORAL Q6H Ciprofloxacin* (Cipro*), 500 MG PO BID Doxycycline Monohydrate* (Doxycycline Monohydrate*), 100 MG ORAL Q12H Fondaparinux Sodium (Fondaparinux Sodium), 10 MG SQ DAILY, (Reported) Fondaparinux Sodium (Fondaparinux Sodium), 10 MG SQ DAILY, (Reported) Gentamicin Sulfate* (Gentamicin Sulfate*), 3.5 GM OP TID Hydroxychloroquine Sulfate* (Plaquenil*), 200 MG ORAL BID, (Reported) Ibuprofen* (Motrin*), 800 MG ORAL THREE TIMES A DAY Lisinopril (Lisinopril*), 40 MG ORAL DAILY, (Reported) No Known Medications* (NKM - No Known Medications*), 0 ., (Reported) Ondansetron Odt* (Zofran Odt*), 4 MG ORAL EVERY 8 HOURS Riociguat (Adempas), 2.5 MG PO TID, (Reported) Trimethoprim/Sulfamethoxazole 160/800* (Bactrim Ds Tablet*), 1 TAB ORAL Q12H Trimethoprim/Sulfamethoxazole 160/800* (Bactrim Ds Tablet*), 1 TAB ORAL Q12H Trimethoprim/Sulfamethoxazole 160/800* (Bactrim Ds Tablet*), 1 TAB ORAL Q12H Vitamin B Complex (B Complex), 1 TAB ORAL DAILY Scheduled PRN Acetaminophen With Codeine (T#3) (Tylenol #3 Tab*), 1 TAB ORAL Q8H PRN for For Pain Oxycodone/Acetaminophen 5-325* (Percocet 5-325 Mg Tablet*), 1 TAB ORAL Q6H PRN for For Pain Patient History Healthcare decision maker Resuscitation status Advanced Directive on File Physical Exam Last 24 Hour Vital Signs Date Time Temp Pulse Resp B/P (MAP) Pulse Ox O2 Delivery O2 Flow Rate FiO2 01/18/20 11:37 103 01/18/20 09:09 129/91 01/18/20 08:00 97.5 107 21 129/91 (104) 100 01/18/20 08:00 2.0 01/18/20 08:00 Nasal Cannula 2.0 01/18/20 07:49 104 01/18/20 04:00 98.0 102 20 139/95 (110) 99 01/18/20 04:00 2.0 01/18/20 04:00 Nasal Cannula 2.0 01/18/20 03:37 98 01/18/20 00:00 97.8 110 20 145/89 (107) 98 01/18/20 00:00 Nasal Cannula 2.0 01/18/20 00:00 107 01/18/20 00:00 2.0 01/17/20 20:00 2.0 01/17/20 20:00 97.5 106 20 134/90 (105) 98 01/17/20 20:00 Nasal Cannula 2.0 01/17/20 20:00 105 01/17/20 18:06 Room Air 01/17/20 17:00 97.2 113 22 155/104 (121) 97 01/17/20 17:00 Room Air 01/17/20 16:56 98.2 103 20 131/91 96 Room Air 01/17/20 15:49 98.2 103 20 138/92 96 Room Air Intake and Output 01/17/20 01/18/20 19:00 07:00 Intake Total 528.24 ml Balance 528.24 ml Intake IV Total 528.24 ml # Voids 2 # Bowel Movements 1 Laboratory Tests Test 01/18/20 01:18 01/18/20 03:30 01/18/20 08:20 01/18/20 11:00 Activated Partial Thromboplast Time 53 SEC (23-33) H 139 SEC (23-33) H White Blood Count 9.1 K/UL (4.8-10.8) Red Blood Count 4.82 M/UL (4.70-6.10) Hemoglobin 14.8 G/DL (14.2-18.0) Hematocrit 47.1 % (42.0-52.0) Mean Corpuscular Volume 98 FL (80-99) Mean Corpuscular Hemoglobin 30.7 PG (27.0-31.0) Mean Corpuscular Hemoglobin Concent 31.3 G/DL (32.0-36.0) L Red Cell Distribution Width 13.2 % (11.6-14.8) Platelet Count 109 K/UL (150-450) L Mean Platelet Volume 8.1 FL (6.5-10.1) Neutrophils (%) (Auto) 58.0 % (45.0-75.0) Lymphocytes (%) (Auto) 31.8 % (20.0-45.0) Monocytes (%) (Auto) 8.4 % (1.0-10.0) Eosinophils (%) (Auto) 0.7 % (0.0-3.0) Basophils (%) (Auto) 1.3 % (0.0-2.0) Sodium Level 142 MMOL/L (136-145) Potassium Level 3.8 MMOL/L (3.5-5.1) Chloride Level 107 MMOL/L (98-107) Carbon Dioxide Level 23 MMOL/L (21-32) Anion Gap 12 mmol/L (5-15) Blood Urea Nitrogen 9 mg/dL (7-18) Creatinine 1.1 MG/DL (0.55-1.30) Estimat Glomerular Filtration Rate > 60 mL/min (>60) Glucose Level 109 MG/DL (74-106) H Calcium Level 8.9 MG/DL (8.5-10.1) Total Bilirubin 1.9 MG/DL (0.2-1.0) H Direct Bilirubin 0.6 MG/DL (0.0-0.3) H Aspartate Amino Transf (AST/SGOT) 51 U/L (15-37) H Alanine Aminotransferase (ALT/SGPT) 84 U/L (12-78) H Alkaline Phosphatase 55 U/L (46-116) Troponin I 0.014 ng/mL (0.000-0.056) 0.012 ng/mL (0.000-0.056) Total Protein 6.5 G/DL (6.4-8.2) Albumin 3.5 G/DL (3.4-5.0) Globulin 3.0 g/dL Albumin/Globulin Ratio 1.2 (1.0-2.7) Microbiology Date/Time Source Procedure Growth Status 01/17/20 14:10 Nasopharynx SARS-CoV-2 RdRp Gene Assay - Final Complete Height (Feet): 5 Height (Inches): 11.00 Weight (Pounds): 313 Medications Current Medications Medications (Trade) Dose Ordered Sig/Hema Route PRN Reason Start Time Stop Time Status Last Admin Dose Admin Acetaminophen (Tylenol) 500 mg Q6H PRN ORAL Mild Pain (Pain Scale 1-3) 01/17/20 18:45 02/16/20 18:44 Baclofen (Lioresal) 10 mg QHS ORAL 01/17/20 21:00 02/16/20 20:59 01/17/20 20:23 Clonidine HCl (Catapres Tab) 0.1 mg Q4H PRN ORAL htn 01/18/20 07:45 04/17/20 07:44 Heparin Sodium/ Dextrose 500 ml @ 42.6 mls/hr ADJUST PER PROTOCOL IV 01/18/20 10:30 02/16/20 19:14 01/18/20 10:16 Iohexol (Omnipaque 350 100ml) 100 ml NOW PRN INJ Radiology Procedure 01/17/20 13:00 01/19/20 12:48 Lisinopril (PriniviL) 40 mg DAILY ORAL 01/18/20 09:00 02/17/20 08:59 01/18/20 09:09 Ondansetron HCl (Zofran) 4 mg Q6H PRN IVP Nausea & Vomiting 01/17/20 18:45 02/16/20 18:44 Assessment/Plan Assessment/Plan: Hematology Consultation REQ MD: Arcenio Villafana RFC: PE and dvt hx DOS 01/18/2020 HPI This patient states that for the past few weeks he has had shortness of breath. He states his symptoms are worse with exertion. He states he is also had chest tightness. He had an episode of nausea yesterday after climbing stairs. He denies recent illness. He denies fever or chills. He denies nausea or vomiting. He denies cough or congestion. He does have a history of antiphospholipid syndrome and is on Fondapurinex for a previously diagnosed PE and DVT. This was several years ago. He has no other complaints. Has a cta and duplex lower ext pending at this time. Seen with Dr. Daley this am. 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 Patient History Past Medical History: see triage record, HTN, other - PE, DVT, antiphospholipid syndrome Social History: Reports: drug use - THC; Denies: smoking, alcohol use Reviewed Nursing Documentation: PMH: Agreed; PSxH: Agreed Nursing Documentation-PMH Hx Cardiac Problems: No - PE, Pulmonary HTN, DVT left leg Hx Hypertension: Yes Hx Pacemaker: No - Antiphospholipid syndrome Review of Systems All Other Systems: negative except mentioned in HPI Physical Exam: Vitals: reviewed General: NAD HEENT: nc, at Neck: supple Chest: clear breath sounds bilaterally Cardiovascular: RRR, no s3, s4 Abdomen: soft, nontender, nd Extremities: no cce, normal range of motion Neuro: alert and oriented Labs noted Imaging reviewed Assessment and Recs # Bilateral pulmonary embolism -- cta reviewed and cards aware has right heart strain --> 2d echo as needed --> started heparin gtt --> was before on fondipeurinax --> now will change to eliquis once discharged to 5mg po bid, will write script # Antiphospholipid syndrome --> with reucrrent clots --> lifelong anticoag --> dUplex the lower ext # Thrombocytopenia, will obtain hep and hiv --> us of abd as well --> plt 107k # Hx of old mi, per cards # HTN, goal sbp <140 The timing of this note does not necessarily reflect the time of the patient was seen. Greatly appreciate consultation. Jimbo Mijares MD Jan 18, 2020 13:56
[2020-01-18 16:00] VITALS: BP 141/92
[2020-01-18 20:00] VITALS: BP 143/90
--- NOTE | 2020-01-18 23:45 | History and Physical Report ---
DATE OF ADMISSION: 01/17/2020 REASON FOR ADMISSION: Chest pain, rule out acute coronary syndrome. The patient is also admitted for bilateral pulmonary embolism as well. HISTORY OF PRESENT ILLNESS: The patient has antiphospholipid syndrome, has history of pulmonary embolism, has been on Lovenox before. The patient also complains of chest pain for a couple of days. The patient has shortness of breath for the past two weeks; however, it is worse in the last week. He would just get short-winded, just doing small level chores and walking bilateral steps. The patient also had mild cough, nonproductive body aches, weakness, and tired for the past couple of days. The patient also has a history of SLE lupus for which he takes Plaquenil. The patient also has chronic back pain for which he takes baclofen. PAST MEDICAL HISTORY: Antiphospholipid syndrome, history of pulmonary embolism, history of back pain, history of lupus, history of hypertension, and history of chronic pain syndrome. PAST SURGICAL HISTORY: Denies. ALLERGIES: No known allergies. FAMILY HISTORY: Does have history of blood clot disorder in the family. SOCIAL HISTORY: Denies history of smoking. Denies history of alcohol abuse. Denies history of drug abuse. MEDICATIONS: Baclofen, fondaparinux, Plaquenil, lisinopril, and Adempas. REVIEW OF SYSTEMS: HEENT: Denies headaches. RESPIRATORY: Reports exertional shortness of breath. CARDIOVASCULAR: Reports chest pain for one day that is made worse by deep inspiration. No orthopnea. GASTROINTESTINAL: Denies nausea, vomiting, or diarrhea. Denies heartburn. EXTREMITIES: Reports body ache all over, especially in the back, which is chronic. CENTRAL NERVOUS SYSTEM: Denies change in speech pattern. Feels very weak. PHYSICAL EXAMINATION: VITAL SIGNS: Temperature is 97.5, pulse is 107, blood pressure 129/91. HEENT: PERRLA. NECK: Supple. No lymphadenopathy. CHEST: Clear to auscultation. CARDIOVASCULAR: Regular rate and rhythm. No murmurs or extra sounds. GASTROINTESTINAL: Soft, nontender, nondistended. No organomegaly. EXTREMITIES: 1+ edema. Reflexes on both sides. Moves all four extremities. LABORATORY DATA: WBC of 10.2, hemoglobin of 16, platelets of 127. Sodium 142, potassium 3.8, chloride 107, BUN of 9, creatinine 1.1, glucose of 109. AST of 51, ALT of 84. ASSESSMENT AND PLAN: Bilateral pulmonary embolism, atypical chest pain, shortness of breath. I have consulted Dr. Alexis, Dr. Jimbo Mijares, Dr. Daley, Dr. Quiroga to help with the above-mentioned abnormalities and abdominal symptoms as well as abnormal lab findings. The patient is on IV heparin. Arcenio Hayes M.D. DR: MARTA JOB#: [id number] CC:
[2020-01-19] VITALS: BP 155/95
[2020-01-19] MEDS: Heparin 25,000u/D5W 500ml 500 ML IV SCH ×2 (00:42→12:00)
[2020-01-19] MEDS ORDERED: Acetaminophen 500mg (ES) tab ORAL PRN (02:00)
[2020-01-19 04:00] VITALS: BP 130/83
[2020-01-19 08:00] VITALS: BP 121/89
[2020-01-19] MEDS: Lisinopril 20mg tab ORAL SCH (08:44)
[2020-01-19] MEDS: HYDROcodone/Acetamin 5/325 tab ORAL PRN ×2 (08:51→22:50)
--- NOTE | 2020-01-19 09:59 | Consultation ---
History of Present Illness General Date patient seen: Jan 19, 2020 Chief Complaint: Present Illness Allergies: Coded Allergies: No Known Allergies (Unverified , 08/11/12) Medication History Scheduled Amoxicillin (Amoxicillin), 125 MG ORAL THREE TIMES A DAY, (Reported) Amoxicillin/Potassium Clav 875-125 Mg Tab* (Amox Tr-K Clv 875-125 Mg Tab*), 1 TAB ORAL EVERY 12 HOURS, (Reported) Baclofen* (Baclofen*), 10 MG ORAL DAILY, (Reported) Baclofen* (Baclofen*), 10 MG ORAL QHS, (Reported) Cephalexin* (Keflex*), 500 MG ORAL Q6H Ciprofloxacin* (Cipro*), 500 MG PO BID Doxycycline Monohydrate* (Doxycycline Monohydrate*), 100 MG ORAL Q12H Fondaparinux Sodium (Fondaparinux Sodium), 10 MG SQ DAILY, (Reported) Fondaparinux Sodium (Fondaparinux Sodium), 10 MG SQ DAILY, (Reported) Gentamicin Sulfate* (Gentamicin Sulfate*), 3.5 GM OP TID Hydroxychloroquine Sulfate* (Plaquenil*), 200 MG ORAL BID, (Reported) Ibuprofen* (Motrin*), 800 MG ORAL THREE TIMES A DAY Lisinopril (Lisinopril*), 40 MG ORAL DAILY, (Reported) No Known Medications* (NKM - No Known Medications*), 0 ., (Reported) Ondansetron Odt* (Zofran Odt*), 4 MG ORAL EVERY 8 HOURS Riociguat (Adempas), 2.5 MG PO TID, (Reported) Trimethoprim/Sulfamethoxazole 160/800* (Bactrim Ds Tablet*), 1 TAB ORAL Q12H Trimethoprim/Sulfamethoxazole 160/800* (Bactrim Ds Tablet*), 1 TAB ORAL Q12H Trimethoprim/Sulfamethoxazole 160/800* (Bactrim Ds Tablet*), 1 TAB ORAL Q12H Vitamin B Complex (B Complex), 1 TAB ORAL DAILY Scheduled PRN Acetaminophen With Codeine (T#3) (Tylenol #3 Tab*), 1 TAB ORAL Q8H PRN for For Pain Oxycodone/Acetaminophen 5-325* (Percocet 5-325 Mg Tablet*), 1 TAB ORAL Q6H PRN for For Pain Patient History Healthcare decision maker Resuscitation status Advanced Directive on File Physical Exam Last 24 Hour Vital Signs Date Time Temp Pulse Resp B/P (MAP) Pulse Ox O2 Delivery O2 Flow Rate FiO2 01/19/20 08:56 2.0 01/19/20 08:53 Room Air 01/19/20 08:44 121/89 01/19/20 08:00 98.4 101 20 121/89 (100) 98 01/19/20 04:00 Nasal Cannula 2.0 01/19/20 04:00 97.0 104 20 130/83 (99) 98 01/19/20 04:00 95 01/19/20 04:00 2.0 01/19/20 00:00 125 01/19/20 00:00 97.9 108 20 155/95 (115) 98 01/19/20 00:00 Nasal Cannula 2.0 01/18/20 20:00 110 01/18/20 20:00 2.0 01/18/20 20:00 Nasal Cannula 2.0 01/18/20 20:00 97.5 107 20 143/90 (107) 98 01/18/20 16:00 Nasal Cannula 2.0 01/18/20 16:00 2.0 01/18/20 16:00 97.0 108 21 141/92 (108) 97 01/18/20 15:24 94 01/18/20 12:00 97.5 103 20 147/103 (118) 99 01/18/20 12:00 2.0 01/18/20 12:00 Nasal Cannula 2.0 01/18/20 11:37 103 Intake and Output 01/18/20 01/19/20 19:00 07:00 Intake Total 1501.97 ml 53.96 ml Output Total 850 ml 625 ml Balance 651.97 ml -571.04 ml Intake Oral 1000 ml IV Total 501.97 ml 53.96 ml Output Urine Total 850 ml 625 ml # Voids 2 2 # Bowel Movements 1 Laboratory Tests Test 01/18/20 11:00 01/18/20 16:30 01/18/20 19:00 01/18/20 23:10 Troponin I 0.012 ng/mL (0.000-0.056) 0.010 ng/mL (0.000-0.056) 0.003 ng/mL (0.000-0.056) Activated Partial Thromboplast Time 49 SEC (23-33) H 129 SEC (23-33) H Hepatitis A IgM Antibody Negative (Negative) Hepatitis B Surface Antigen Negative (Negative) Hepatitis B Core IgM Antibody Negative (Negative) Hepatitis C Antibody <0.1 s/co ratio HIV (1&2) Antibody Rapid Negative (NEGATIVE) Test 01/19/20 06:36 Activated Partial Thromboplast Time 75 SEC (23-33) H Troponin I 0.001 ng/mL (0.000-0.056) Height (Feet): 5 Height (Inches): 11.00 Weight (Pounds): 308 Medications Current Medications Medications (Trade) Dose Ordered Sig/Hema Route PRN Reason Start Time Stop Time Status Last Admin Dose Admin Acetaminophen (Tylenol) 500 mg Q6H PRN ORAL Mild Pain (Pain Scale 1-3) 01/19/20 02:00 02/16/20 01:59 Acetaminophen/ Hydrocodone Bitart ([place] 5/325) 1 tab Q6H PRN ORAL Severe Pain (Pain Scale 7-10) 01/19/20 08:30 01/26/20 08:29 01/19/20 08:51 Baclofen (Lioresal) 10 mg QHS ORAL 01/18/20 21:00 02/16/20 20:59 01/18/20 20:43 Clonidine HCl (Catapres Tab) 0.1 mg Q4H PRN ORAL htn 01/18/20 20:15 04/17/20 20:14 Heparin Sodium/ Dextrose 500 ml @ 45.44 mls/ hr ADJUST PER PROTOCOL IV 01/19/20 00:20 02/18/20 00:19 01/19/20 00:42 Iohexol (Omnipaque 350 100ml) 100 ml NOW PRN INJ Radiology Procedure 01/19/20 13:00 01/20/20 12:48 Lisinopril (PriniviL) 40 mg DAILY ORAL 01/19/20 09:00 02/17/20 08:59 01/19/20 08:44 Ondansetron HCl (Zofran) 4 mg Q6H PRN IVP Nausea & Vomiting 01/18/20 20:15 02/17/20 20:14 01/19/20 08:45 Assessment/Plan Assessment/Plan: (1) Left LE pain (2) DVT (3) B/L PE (4) Atypical chest pain Seen dictated Emory Rhodes Jan 19, 2020 09:59
--- NOTE | 2020-01-19 10:18 | Diagnostic Imaging Report ---
EXAM: ULTRASOUND US ABD Complete CLINICAL HISTORY: History of lupus and antiphospholipid syndrome. Elevated LFTs. Abdominal discomfort. COMPARISON: None TECHNIQUE: Ultrasound examination of the abdomen includes grayscale images, and color and spectral doppler analysis. FINDINGS: There is hepatosplenomegaly with fatty change and fatty sparing. Spleen is homogeneous. Gallbladder is without sludge or stone. There may be slight wall thickening. Common bile duct measures 5 mm. The pancreas is unremarkable to the extent visualized. The kidneys are normal in size, shape and axis. Aorta and cava only partially visualized. IMPRESSION: HEPATOSPLENOMEGALY WITH FATTY CHANGE AND FATTY SPARING.
--- NOTE | 2020-01-19 10:36 | Pulmonology Progress Note ---
Subjective Interval Events: none new Constitutional: Reports: no symptoms HEENT: Repors: no symptoms Respiratory: Reports: no symptoms Cardiovascular: Reports: no symptoms Gastrointestinal/Abdominal: Reports: no symptoms Allergies: Coded Allergies: No Known Allergies (Unverified , 08/11/12) Objective Last 24 Hour Vital Signs Date Time Temp Pulse Resp B/P (MAP) Pulse Ox O2 Delivery O2 Flow Rate FiO2 01/19/20 08:56 2.0 01/19/20 08:53 Room Air 01/19/20 08:44 121/89 01/19/20 08:00 98.4 101 20 121/89 (100) 98 01/19/20 08:00 111 01/19/20 04:00 Nasal Cannula 2.0 01/19/20 04:00 97.0 104 20 130/83 (99) 98 01/19/20 04:00 95 01/19/20 04:00 2.0 01/19/20 00:00 125 01/19/20 00:00 97.9 108 20 155/95 (115) 98 01/19/20 00:00 Nasal Cannula 2.0 01/18/20 20:00 110 01/18/20 20:00 2.0 01/18/20 20:00 Nasal Cannula 2.0 01/18/20 20:00 97.5 107 20 143/90 (107) 98 01/18/20 16:00 Nasal Cannula 2.0 01/18/20 16:00 2.0 01/18/20 16:00 97.0 108 21 141/92 (108) 97 01/18/20 15:24 94 01/18/20 12:00 97.5 103 20 147/103 (118) 99 01/18/20 12:00 2.0 01/18/20 12:00 Nasal Cannula 2.0 01/18/20 11:37 103 Intake and Output 01/18/20 01/19/20 19:00 07:00 Intake Total 1501.97 ml 53.96 ml Output Total 850 ml 625 ml Balance 651.97 ml -571.04 ml Intake Oral 1000 ml IV Total 501.97 ml 53.96 ml Output Urine Total 850 ml 625 ml # Voids 2 2 # Bowel Movements 1 General Appearance: no acute distress HEENT: normocephalic Respiratory: chest wall non-tender, lungs clear Cardiovascular: normal peripheral pulses Abdomen: normal bowel sounds Microbiology Date/Time Source Procedure Growth Status 01/17/20 14:10 Nasopharynx SARS-CoV-2 RdRp Gene Assay - Final Complete 01/17/20 12:13 Nasopharynx Coronavirus COVID-19 PCR ([facility]) - Final Complete Laboratory Tests 01/18/20 11:00: Troponin I 0.012 01/18/20 16:30: Troponin I 0.010, Activated Partial Thromboplast Time 49H, Hepatitis A IgM Antibody Negative, Hepatitis B Surface Antigen Negative, Hepatitis B Core IgM Antibody Negative, Hepatitis C Antibody <0.1, HIV (1&2) Antibody Rapid Negative 01/18/20 19:00: Troponin I 0.003 01/18/20 23:10: Activated Partial Thromboplast Time 129H 01/19/20 06:36: Activated Partial Thromboplast Time 75H, Troponin I 0.001 Current Medications Medications (Trade) Dose Ordered Sig/Hema Route PRN Reason Start Time Stop Time Status Last Admin Dose Admin Acetaminophen (Tylenol) 500 mg Q6H PRN ORAL Mild Pain (Pain Scale 1-3) 01/19/20 02:00 02/16/20 01:59 Acetaminophen/ Hydrocodone Bitart ([place] 5/325) 1 tab Q6H PRN ORAL Severe Pain (Pain Scale 7-10) 01/19/20 08:30 01/26/20 08:29 01/19/20 08:51 Baclofen (Lioresal) 10 mg QHS ORAL 01/18/20 21:00 02/16/20 20:59 01/18/20 20:43 Clonidine HCl (Catapres Tab) 0.1 mg Q4H PRN ORAL htn 01/18/20 20:15 04/17/20 20:14 Heparin Sodium/ Dextrose 500 ml @ 45.44 mls/ hr ADJUST PER PROTOCOL IV 01/19/20 00:20 02/18/20 00:19 01/19/20 00:42 Iohexol (Omnipaque 350 100ml) 100 ml NOW PRN INJ Radiology Procedure 01/19/20 13:00 01/20/20 12:48 Lisinopril (PriniviL) 40 mg DAILY ORAL 01/19/20 09:00 02/17/20 08:59 01/19/20 08:44 Ondansetron HCl (Zofran) 4 mg Q6H PRN IVP Nausea & Vomiting 01/18/20 20:15 02/17/20 20:14 01/19/20 08:45 Assessment/Plan Assessment/Plan IMPRESSION: 1. Anticoagulation failure, outpatient. 2. Acute bilateral pulmonary embolism. 3. Antiphospholipid syndrome. DISCUSSION: Anticoagulation with Coumadin. Defer to Hematology. Currently, he is saturating well on low-flow oxygen and is normotensive. I will follow carefully. Dot Murray Omar Syed MD Jan 19, 2020 10:36
--- NOTE | 2020-01-19 11:25 | Hematology/Onc Progress Note ---
Assessment/Plan Assessment/Plan Assessment and Recs # Bilateral pulmonary embolism -- cta reviewed and cards aware has right heart strain, duplex lower ext neg --> 2d echo as needed --> started heparin gtt --> was before on fondipeurinax --> now will change to eliquis once discharged to 5mg po bid, will write script # Antiphospholipid syndrome --> with reucrrent clots --> lifelong anticoag --> dUplex the lower ext # Thrombocytopenia, appears chronic --> will obtain hep and hiv --> us of abd: HEPATOSPLENOMEGALY WITH FATTY CHANGE AND FATTY SPARING. --> plt 107k # Hx of old mi, per cards # HTN, goal sbp <140 The timing of this note does not necessarily reflect the time of the patient was seen. Greatly appreciate consultation. Subjective Allergies: Coded Allergies: No Known Allergies (Unverified , 08/11/12) Subjective 01/18 alert, us abd w/ hsm, coumadin, room air Objective Objective Current Medications Medications (Trade) Dose Ordered Sig/Hema Route PRN Reason Start Time Stop Time Status Last Admin Dose Admin Acetaminophen (Tylenol) 500 mg Q6H PRN ORAL Mild Pain (Pain Scale 1-3) 01/19/20 02:00 02/16/20 01:59 Acetaminophen/ Hydrocodone Bitart ([place] 5/325) 1 tab Q6H PRN ORAL Severe Pain (Pain Scale 7-10) 01/19/20 08:30 01/26/20 08:29 01/19/20 08:51 Baclofen (Lioresal) 10 mg QHS ORAL 01/18/20 21:00 02/16/20 20:59 01/18/20 20:43 Clonidine HCl (Catapres Tab) 0.1 mg Q4H PRN ORAL htn 01/18/20 20:15 04/17/20 20:14 Heparin Sodium/ Dextrose 500 ml @ 45.44 mls/ hr ADJUST PER PROTOCOL IV 01/19/20 00:20 02/18/20 00:19 01/19/20 00:42 Iohexol (Omnipaque 350 100ml) 100 ml NOW PRN INJ Radiology Procedure 01/19/20 13:00 01/20/20 12:48 Lisinopril (PriniviL) 40 mg DAILY ORAL 01/19/20 09:00 02/17/20 08:59 01/19/20 08:44 Ondansetron HCl (Zofran) 4 mg Q6H PRN IVP Nausea & Vomiting 01/18/20 20:15 02/17/20 20:14 01/19/20 08:45 Last 24 Hour Vital Signs Date Time Temp Pulse Resp B/P (MAP) Pulse Ox O2 Delivery O2 Flow Rate FiO2 01/19/20 08:56 2.0 01/19/20 08:53 Room Air 01/19/20 08:44 121/89 01/19/20 08:00 98.4 101 20 121/89 (100) 98 01/19/20 08:00 111 01/19/20 04:00 Nasal Cannula 2.0 01/19/20 04:00 97.0 104 20 130/83 (99) 98 01/19/20 04:00 95 01/19/20 04:00 2.0 01/19/20 00:00 125 01/19/20 00:00 97.9 108 20 155/95 (115) 98 01/19/20 00:00 Nasal Cannula 2.0 01/18/20 20:00 110 01/18/20 20:00 2.0 01/18/20 20:00 Nasal Cannula 2.0 01/18/20 20:00 97.5 107 20 143/90 (107) 98 01/18/20 16:00 Nasal Cannula 2.0 01/18/20 16:00 2.0 01/18/20 16:00 97.0 108 21 141/92 (108) 97 01/18/20 15:24 94 01/18/20 12:00 97.5 103 20 147/103 (118) 99 01/18/20 12:00 2.0 01/18/20 12:00 Nasal Cannula 2.0 01/18/20 11:37 103 01/18/20 09:09 129/91 01/18/20 08:00 97.5 107 21 129/91 (104) 100 01/18/20 08:00 2.0 01/18/20 08:00 Nasal Cannula 2.0 01/18/20 07:49 104 01/18/20 04:00 98.0 102 20 139/95 (110) 99 01/18/20 04:00 2.0 01/18/20 04:00 Nasal Cannula 2.0 01/18/20 03:37 98 01/18/20 00:00 97.8 110 20 145/89 (107) 98 01/18/20 00:00 Nasal Cannula 2.0 01/18/20 00:00 107 01/18/20 00:00 2.0 01/17/20 20:00 2.0 01/17/20 20:00 97.5 106 20 134/90 (105) 98 01/17/20 20:00 Nasal Cannula 2.0 01/17/20 20:00 105 01/17/20 18:06 Room Air 01/17/20 17:00 97.2 113 22 155/104 (121) 97 01/17/20 17:00 Room Air 01/17/20 16:56 98.2 103 20 131/91 96 Room Air 01/17/20 15:49 98.2 103 20 138/92 96 Room Air 01/17/20 12:00 98.2 118 20 148/98 95 Room Air 01/17/20 12:00 118 20 Room Air 01/17/20 11:56 98.2 111 22 141/100 (114) 93 Room Air Intake and Output 01/18/20 01/19/20 19:00 07:00 Intake Total 1501.97 ml 53.96 ml Output Total 850 ml 625 ml Balance 651.97 ml -571.04 ml Intake Oral 1000 ml IV Total 501.97 ml 53.96 ml Output Urine Total 850 ml 625 ml # Voids 2 2 # Bowel Movements 1 Labs Test 01/17/20 12:13 01/17/20 12:29 01/18/20 01:18 01/18/20 03:30 White Blood Count 10.2 K/UL (4.8-10.8) 9.1 K/UL (4.8-10.8) Red Blood Count 5.20 M/UL (4.70-6.10) 4.82 M/UL (4.70-6.10) Hemoglobin 16.0 G/DL (14.2-18.0) 14.8 G/DL (14.2-18.0) Hematocrit 50.6 % (42.0-52.0) 47.1 % (42.0-52.0) Mean Corpuscular Volume 97 FL (80-99) 98 FL (80-99) Mean Corpuscular Hemoglobin 30.7 PG (27.0-31.0) 30.7 PG (27.0-31.0) Mean Corpuscular Hemoglobin Concent 31.5 G/DL (32.0-36.0) 31.3 G/DL (32.0-36.0) Red Cell Distribution Width 13.4 % (11.6-14.8) 13.2 % (11.6-14.8) Platelet Count 127 K/UL (150-450) 109 K/UL (150-450) Mean Platelet Volume 8.6 FL (6.5-10.1) 8.1 FL (6.5-10.1) Neutrophils (%) (Auto) 73.0 % (45.0-75.0) 58.0 % (45.0-75.0) Lymphocytes (%) (Auto) 19.0 % (20.0-45.0) 31.8 % (20.0-45.0) Monocytes (%) (Auto) 6.7 % (1.0-10.0) 8.4 % (1.0-10.0) Eosinophils (%) (Auto) 0.3 % (0.0-3.0) 0.7 % (0.0-3.0) Basophils (%) (Auto) 1.0 % (0.0-2.0) 1.3 % (0.0-2.0) Prothrombin Time 13.3 SEC (9.30-11.50) Prothromb Time International Ratio 1.2 (0.9-1.1) Activated Partial Thromboplast Time 34 SEC (23-33) 53 SEC (23-33) D-Dimer 2.43 mg/L FEU (0.00-0.49) Sodium Level 140 MMOL/L (136-145) 142 MMOL/L (136-145) Potassium Level 3.8 MMOL/L (3.5-5.1) 3.8 MMOL/L (3.5-5.1) Chloride Level 106 MMOL/L (98-107) 107 MMOL/L (98-107) Carbon Dioxide Level 21 MMOL/L (21-32) 23 MMOL/L (21-32) Anion Gap 13 mmol/L (5-15) 12 mmol/L (5-15) Blood Urea Nitrogen 9 mg/dL (7-18) 9 mg/dL (7-18) Creatinine 1.1 MG/DL (0.55-1.30) 1.1 MG/DL (0.55-1.30) Estimat Glomerular Filtration Rate > 60 mL/min (>60) > 60 mL/min (>60) Glucose Level 117 MG/DL (74-106) 109 MG/DL (74-106) Calcium Level 8.9 MG/DL (8.5-10.1) 8.9 MG/DL (8.5-10.1) Total Bilirubin 2.2 MG/DL (0.2-1.0) 1.9 MG/DL (0.2-1.0) Direct Bilirubin 0.6 MG/DL (0.0-0.3) 0.6 MG/DL (0.0-0.3) Aspartate Amino Transf (AST/SGOT) 62 U/L (15-37) 51 U/L (15-37) Alanine Aminotransferase (ALT/SGPT) 98 U/L (12-78) 84 U/L (12-78) Alkaline Phosphatase 64 U/L (46-116) 55 U/L (46-116) Total Creatine Kinase 173 U/L (26-308) Troponin I 0.012 ng/mL (0.000-0.056) 0.014 ng/mL (0.000-0.056) C-Reactive Protein, Quantitative 4.0 mg/dL (0.00-0.90) Total Protein 7.4 G/DL (6.4-8.2) 6.5 G/DL (6.4-8.2) Albumin 3.9 G/DL (3.4-5.0) 3.5 G/DL (3.4-5.0) Globulin 3.5 g/dL 3.0 g/dL Albumin/Globulin Ratio 1.1 (1.0-2.7) 1.2 (1.0-2.7) Urine Color Yellow Urine Appearance Clear Urine pH 6 (4.5-8.0) Urine Specific [place] 1.015 (1.005-1.035) Urine Protein 3+ (NEGATIVE) Urine Glucose (UA) Negative (NEGATIVE) Urine Ketones Negative (NEGATIVE) Urine Blood Negative (NEGATIVE) Urine Nitrite Negative (NEGATIVE) Urine Bilirubin Negative (NEGATIVE) Urine Urobilinogen 4 MG/DL (0.0-1.0) Urine Leukocyte Esterase 1+ (NEGATIVE) Urine RBC 0 /HPF (0 - 0) Urine WBC 0-2 /HPF (0 - 0) Urine Squamous Epithelial Cells Occasional /LPF Urine Bacteria Occasional /HPF (NONE) Urine Mucus Occasional /LPF Urine Opiates Screen Negative (NEGATIVE) Urine Barbiturates Screen Negative (NEGATIVE) Phencyclidine (PCP) Screen Negative (NEGATIVE) Urine Amphetamines Screen Negative (NEGATIVE) Urine Benzodiazepines Screen Negative (NEGATIVE) Urine Cocaine Screen Negative (NEGATIVE) Urine Marijuana (THC) Screen Positive (NEGATIVE) Test 01/18/20 08:20 01/18/20 11:00 01/18/20 16:30 01/18/20 19:00 Activated Partial Thromboplast Time 139 SEC (23-33) 49 SEC (23-33) Troponin I 0.012 ng/mL (0.000-0.056) 0.010 ng/mL (0.000-0.056) 0.003 ng/mL (0.000-0.056) Hepatitis A IgM Antibody Negative (Negative) Hepatitis B Surface Antigen Negative (Negative) Hepatitis B Core IgM Antibody Negative (Negative) Hepatitis C Antibody <0.1 s/co ratio HIV (1&2) Antibody Rapid Negative (NEGATIVE) Test 01/18/20 23:10 01/19/20 06:36 Activated Partial Thromboplast Time 129 SEC (23-33) 75 SEC (23-33) Troponin I 0.001 ng/mL (0.000-0.056) Height (Feet): 5 Height (Inches): 11.00 Weight (Pounds): 308 Objective Physical Exam: Vitals: reviewed General: NAD HEENT: nc, at Neck: supple Chest: clear breath sounds bilaterally Cardiovascular: RRR, no s3, s4 Abdomen: soft, nontender, nd Extremities: no cce, normal range of motion Neuro: alert and oriented Jimbo Mijares MD Jan 19, 2020 11:25
[2020-01-19 12:00] VITALS: BP 123/88
[2020-01-19] MEDS ORDERED: Omnipaque 350 100ml vial INJ PRN (13:00)
--- NOTE | 2020-01-19 13:49 | Cardiac Electrophysiology PN ---
Assessment/Plan Assessment/Plan 1. Shortness of breath and extensive bilateral pulmonary embolus. The patient was already started on heparin drip per pharmacy. Dr. Mijares Echocardiogram EF 55% 2. Hypertension. The patient is on lisinopril 40 mg daily and p.r.n. clonidine 3. Bifascicular block with right bundle-branch block and left anterior fascicular block. 4. Old inferior wall myocardial infarction. No CP and echocardiogramfNl EF Subjective Subjective No CP or SOB on heparin drip in SR. RN at bedside Objective Last 24 Hour Vital Signs Date Time Temp Pulse Resp B/P (MAP) Pulse Ox O2 Delivery O2 Flow Rate FiO2 01/19/20 12:00 98.7 79 20 123/88 (100) 98 01/19/20 12:00 97 01/19/20 12:00 2.0 01/19/20 08:56 2.0 01/19/20 08:53 Room Air 01/19/20 08:44 121/89 01/19/20 08:00 98.4 101 20 121/89 (100) 98 01/19/20 08:00 111 01/19/20 04:00 Nasal Cannula 2.0 01/19/20 04:00 97.0 104 20 130/83 (99) 98 01/19/20 04:00 95 01/19/20 04:00 2.0 01/19/20 00:00 125 01/19/20 00:00 97.9 108 20 155/95 (115) 98 01/19/20 00:00 Nasal Cannula 2.0 01/18/20 20:00 110 01/18/20 20:00 2.0 01/18/20 20:00 Nasal Cannula 2.0 01/18/20 20:00 97.5 107 20 143/90 (107) 98 01/18/20 16:00 Nasal Cannula 2.0 01/18/20 16:00 2.0 01/18/20 16:00 97.0 108 21 141/92 (108) 97 01/18/20 15:24 94 Intake and Output 01/18/20 01/19/20 19:00 07:00 Intake Total 1501.97 ml 53.96 ml Output Total 850 ml 625 ml Balance 651.97 ml -571.04 ml Intake Oral 1000 ml IV Total 501.97 ml 53.96 ml Output Urine Total 850 ml 625 ml # Voids 2 2 # Bowel Movements 1 Laboratory Tests Test 01/18/20 16:30 01/18/20 19:00 01/18/20 23:10 01/19/20 06:36 Activated Partial Thromboplast Time 49 SEC (23-33) H 129 SEC (23-33) H 75 SEC (23-33) H Troponin I 0.010 ng/mL (0.000-0.056) 0.003 ng/mL (0.000-0.056) 0.001 ng/mL (0.000-0.056) Hepatitis A IgM Antibody Negative (Negative) Hepatitis B Surface Antigen Negative (Negative) Hepatitis B Core IgM Antibody Negative (Negative) Hepatitis C Antibody <0.1 s/co ratio HIV (1&2) Antibody Rapid Negative (NEGATIVE) Microbiology Date/Time Source Procedure Growth Status 01/17/20 14:10 Nasopharynx SARS-CoV-2 RdRp Gene Assay - Final Complete 01/17/20 12:13 Nasopharynx Coronavirus COVID-19 PCR ([facility]) - Final Complete Objective HEAD AND NECK: Showed no JVD. LUNGS: Coarse rhonchi. CARDIOVASCULAR: Shows regular S1 and S2 with no gallop. ABDOMEN: Soft. EXTREMITIES: No pitting edema. Cj Daley MD Jan 19, 2020 13:49
[2020-01-19 16:00] VITALS: BP 112/52
[2020-01-19 20:00] VITALS: BP 136/92
--- NOTE | 2020-01-19 21:29 | General Progress Note ---
Assessment/Plan Problem List: (1) Dyspnea ICD Codes: R06.00 - Dyspnea, unspecified SNOMED: 227999285 (2) Bilateral pulmonary embolism ICD Codes: I26.99 - Other pulmonary embolism without acute cor pulmonale SNOMED: 60679004 (3) Chest pain ICD Codes: R07.9 - Chest pain, unspecified SNOMED: 57339974 (4) Acute coronary syndrome ICD Codes: I24.9 - Acute ischemic heart disease, unspecified SNOMED: 988690880 Status: progressing Assessment/Plan: sob bilateral pna afebrile on anticoagulant reviewed chart and labs afebrile on oxygen Subjective Respiratory: Reports: shortness of breath Allergies: Coded Allergies: No Known Allergies (Unverified , 08/11/12) Objective Last 24 Hour Vital Signs Date Time Temp Pulse Resp B/P (MAP) Pulse Ox O2 Delivery O2 Flow Rate FiO2 01/19/20 16:00 96 01/19/20 16:00 2.0 01/19/20 16:00 98.2 81 18 112/52 (72) 100 01/19/20 12:00 98.7 79 20 123/88 (100) 98 01/19/20 12:00 97 01/19/20 12:00 2.0 01/19/20 08:56 2.0 01/19/20 08:53 Room Air 01/19/20 08:44 121/89 01/19/20 08:00 98.4 101 20 121/89 (100) 98 01/19/20 08:00 111 01/19/20 04:00 Nasal Cannula 2.0 01/19/20 04:00 97.0 104 20 130/83 (99) 98 01/19/20 04:00 95 01/19/20 04:00 2.0 01/19/20 00:00 125 01/19/20 00:00 97.9 108 20 155/95 (115) 98 01/19/20 00:00 Nasal Cannula 2.0 Intake and Output 01/18/20 01/19/20 19:00 07:00 Intake Total 1501.97 ml 53.96 ml Output Total 850 ml 625 ml Balance 651.97 ml -571.04 ml Intake Oral 1000 ml IV Total 501.97 ml 53.96 ml Output Urine Total 850 ml 625 ml # Voids 2 2 # Bowel Movements 1 Laboratory Tests 01/18/20 23:10: Activated Partial Thromboplast Time 129H 01/19/20 06:36: Activated Partial Thromboplast Time 75H, Troponin I 0.001 Height (Feet): 5 Height (Inches): 11.00 Weight (Pounds): 308 Arcenio Hayes MD Jan 19, 2020 21:29
--- NOTE | 2020-01-19 21:45 | Consultation ---
DATE OF CONSULTATION: 01/19/2020 PAIN MANAGEMENT CONSULTATION CONSULTING PHYSICIAN: Israel Del Valle MD. REFERRING PHYSICIAN: Arcenio Hayes MD. PHYSICIAN LINE PATROLMAN: KENYA Prather CHIEF COMPLAINT: Left lower extremity. HISTORY OF PRESENT ILLNESS: This is a 24-year-old male who is being seen on the Med/Surg floor of [facility] for initial pain management consultation. Patient was admitted under care of Dr. Hayes due to chest pain and had bilateral pulmonary embolisms. Also complaining of left lower extremity pain due to DVT, which he has been having issues with for the past 3 years. It is off on pain. It is acute on chronic rating at 6/10, describing as a cramping pain, increased with movement, and reduced with medication. He was started on [place] 5/325 one tablet every 6 hours as needed for severe pain, which patient reports has been adequately relieving his pain to tolerable level. We were consulted so the patient would have adequate pain control while here in the hospital. PAST MEDICAL HISTORY: Lupus, osteoarthritis, morbid obesity, antiphospholipid syndrome, CHF. PAST SURGICAL HISTORY: Denies. SOCIAL HISTORY: Denies smoking tobacco, drinking alcohol, or drug abuse. ALLERGIES: No known drug allergies. MEDICATION: Hydroxychloroquine. REVIEW OF SYSTEMS: Denies rash, fever, chills, sweating, dizziness, drowsiness, blurred vision, sore throat, or change in weight. No nausea, vomiting, diarrhea, or blood in the stool. No dysuria. PHYSICAL EXAMINATION: GENERAL: Alert, awake, and oriented. VITAL SIGNS: Blood pressure 101/89, heart rate , oxygen saturation 98%, respiratory rate is 20, temperature is 98.4 degrees Fahrenheit. HEENT: PERRLA. NECK: Range of motion is full in all directions. No tenderness to paracervical muscles. No adenopathy. LUNGS: Decreased breath sounds bilaterally. HEART: S1 and S2 regular. ABDOMEN: Obese. BACK: Range of motion is full in flexion and extension. EXTREMITIES: Upper extremity range of motion is decreased due to patient's condition. No cyanosis, no clubbing, and no edema. Sensory is intact. Reflexes are not obtainable. No adenopathy. ASSESSMENT AND PLAN: This is a 24-year-old male with left lower extremity pain, DVT, bilateral pulmonary embolism, atypical chest pain. The patient is to continue on the [place] as needed. The patient was discussed with Dr. Del Valle and Dr. Del Valle concurred. We will follow the patient. Thank you very much for the courtesy of this consultation. Israel Del Valle M.D. KENYA Prather DR: JC JOB#: [id number] CC:
[2020-01-20] VITALS: BP 140/91
[2020-01-20 04:00] VITALS: BP 138/86
[2020-01-20] MEDS: Heparin 25,000u/D5W 500ml 500 ML IV SCH ×2 (05:15→10:45)
[2020-01-20] MEDS ORDERED: Heparin 5000 units/ml inj IV SCH (05:15)
[2020-01-20 08:00] VITALS: BP 112/72
[2020-01-20] MEDS: HYDROcodone/Acetamin 5/325 tab ORAL PRN (09:56)
[2020-01-20] MEDS: Lisinopril 20mg tab ORAL SCH (09:57)
--- NOTE | 2020-01-20 10:07 | Cardiac Electrophysiology PN ---
Assessment/Plan Assessment/Plan 1. Shortness of breath and extensive bilateral pulmonary embolus. On heparin drip per pharmacy. FU Dr. Mijares EF 55% 2. Hypertension. On lisinopril 40 mg daily and p.r.n. clonidine 3. Bifascicular block with right bundle-branch block and left anterior fascicular block.No Syncope 4. Old inferior wall myocardial infarction. No CP and echo Nl EF DW RN Subjective Subjective No CP or SOB on heparin drip in SR. RN at bedside. Still has left thigh pain Objective Last 24 Hour Vital Signs Date Time Temp Pulse Resp B/P (MAP) Pulse Ox O2 Delivery O2 Flow Rate FiO2 01/20/20 09:57 112/72 01/20/20 09:00 2.0 01/20/20 08:00 97.7 88 20 112/72 (85) 99 01/20/20 04:00 98.0 95 18 138/86 (103) 96 01/20/20 04:00 2.0 01/20/20 04:00 97 01/20/20 00:00 101 01/20/20 00:00 97.7 99 18 140/91 (107) 98 01/19/20 23:27 97.9 01/19/20 20:00 111 01/19/20 20:00 2.0 01/19/20 20:00 97.9 103 18 136/92 (107) 98 01/19/20 16:00 96 01/19/20 16:00 2.0 01/19/20 16:00 98.2 81 18 112/52 (72) 100 01/19/20 12:00 98.7 79 20 123/88 (100) 98 01/19/20 12:00 97 01/19/20 12:00 2.0 Intake and Output 01/19/20 01/20/20 19:00 07:00 Intake Total 685.28 ml Output Total 1200 ml 1500 ml Balance -514.72 ml -1500 ml Intake Oral 140 ml IV Total 545.28 ml Output Urine Total 1200 ml 1500 ml # Voids 5 # Bowel Movements 1 Laboratory Tests Test 01/20/20 03:50 Activated Partial Thromboplast Time 55 SEC (23-33) H Microbiology Date/Time Source Procedure Growth Status 01/17/20 14:10 Nasopharynx SARS-CoV-2 RdRp Gene Assay - Final Complete 01/17/20 12:13 Nasopharynx Coronavirus COVID-19 PCR ([facility]) - Final Complete Objective HEAD AND NECK: no JVD. LUNGS: Coarse rhonchi. CARDIOVASCULAR: Shows regular S1 and S2 with no gallop. ABDOMEN: Soft. EXTREMITIES: No pitting edema.Left thigh tender Cj Daley MD Jan 20, 2020 10:07
--- NOTE | 2020-01-20 10:28 | Pulmonology Progress Note ---
Subjective Interval Events: none new Constitutional: Reports: no symptoms HEENT: Repors: no symptoms Respiratory: Reports: no symptoms Cardiovascular: Reports: no symptoms Gastrointestinal/Abdominal: Reports: no symptoms Allergies: Coded Allergies: No Known Allergies (Unverified , 08/11/12) Objective Last 24 Hour Vital Signs Date Time Temp Pulse Resp B/P (MAP) Pulse Ox O2 Delivery O2 Flow Rate FiO2 01/20/20 09:57 112/72 01/20/20 09:00 2.0 01/20/20 09:00 Nasal Cannula 2.0 Nasal Cannula 2.0 01/20/20 08:00 97.7 88 20 112/72 (85) 99 01/20/20 04:00 98.0 95 18 138/86 (103) 96 01/20/20 04:00 2.0 01/20/20 04:00 97 01/20/20 00:00 101 01/20/20 00:00 97.7 99 18 140/91 (107) 98 01/19/20 23:27 97.9 01/19/20 20:00 111 01/19/20 20:00 2.0 01/19/20 20:00 97.9 103 18 136/92 (107) 98 01/19/20 16:00 96 01/19/20 16:00 2.0 01/19/20 16:00 98.2 81 18 112/52 (72) 100 01/19/20 12:00 98.7 79 20 123/88 (100) 98 01/19/20 12:00 97 01/19/20 12:00 2.0 Intake and Output 01/19/20 01/20/20 19:00 07:00 Intake Total 685.28 ml Output Total 1200 ml 1500 ml Balance -514.72 ml -1500 ml Intake Oral 140 ml IV Total 545.28 ml Output Urine Total 1200 ml 1500 ml # Voids 5 # Bowel Movements 1 General Appearance: no acute distress HEENT: normocephalic Respiratory: chest wall non-tender, lungs clear Cardiovascular: normal peripheral pulses Abdomen: normal bowel sounds Microbiology Date/Time Source Procedure Growth Status 01/17/20 14:10 Nasopharynx SARS-CoV-2 RdRp Gene Assay - Final Complete 01/17/20 12:13 Nasopharynx Coronavirus COVID-19 PCR ([facility]) - Final Complete Laboratory Tests 01/20/20 03:50: Activated Partial Thromboplast Time 55H Current Medications Medications (Trade) Dose Ordered Sig/Hema Route PRN Reason Start Time Stop Time Status Last Admin Dose Admin Acetaminophen (Tylenol) 500 mg Q6H PRN ORAL Mild Pain (Pain Scale 1-3) 01/19/20 02:00 02/16/20 01:59 Acetaminophen/ Hydrocodone Bitart ([place] 5/325) 1 tab Q6H PRN ORAL Severe Pain (Pain Scale 7-10) 01/19/20 08:30 01/26/20 08:29 01/20/20 09:56 Baclofen (Lioresal) 10 mg QHS ORAL 01/18/20 21:00 02/16/20 20:59 01/19/20 20:31 Clonidine HCl (Catapres Tab) 0.1 mg Q4H PRN ORAL htn 01/18/20 20:15 04/17/20 20:14 Heparin Sodium/ Dextrose 500 ml @ 51.12 mls/ hr ADJUST PER PROTOCOL IV 01/20/20 05:15 02/19/20 05:14 01/20/20 05:15 Iohexol (Omnipaque 350 100ml) 100 ml NOW PRN INJ Radiology Procedure 01/19/20 13:00 01/20/20 12:48 Lisinopril (PriniviL) 40 mg DAILY ORAL 01/19/20 09:00 02/17/20 08:59 01/20/20 09:57 Ondansetron HCl (Zofran) 4 mg Q6H PRN IVP Nausea & Vomiting 01/18/20 20:15 02/17/20 20:14 01/19/20 08:45 Assessment/Plan Assessment/Plan IMPRESSION: 1. Anticoagulation failure, outpatient. 2. Acute bilateral pulmonary embolism. 3. Antiphospholipid syndrome. DISCUSSION: Anticoagulation with Coumadin. Defer to Hematology. Currently, he is saturating well on low-flow oxygen and is normotensive. I will follow carefully. Dot Murray Omar Syed MD Jan 20, 2020 10:28
[2020-01-20 12:00] VITALS: BP 127/91
[2020-01-20 12:43] LABS: INR 1.1 (0.9-1.1)
[2020-01-20] MEDS ORDERED: Heparin 25,000u/D5W 500ml 500 ML IV SCH (12:47)
--- NOTE | 2020-01-20 12:48 | Hematology/Onc Progress Note ---
Assessment/Plan Assessment/Plan Assessment and Recs # Bilateral pulmonary embolism -- cta reviewed and cards aware has right heart strain, duplex lower ext neg --> 2d echo as needed --> started heparin gtt --> was before on fondipeurinax --> have started on coumadin given APLS and dose inr 3-3.5 --> in the past had issue with maintaining a therapeutic inr on coumadin but only took it at hospital --> will need lovenox in meantime # Antiphospholipid syndrome --> with reucrrent clots --> lifelong anticoag --> dUplex the lower ext # Thrombocytopenia, appears chronic --> will obtain hep and hiv --> us of abd: HEPATOSPLENOMEGALY WITH FATTY CHANGE AND FATTY SPARING. --> plt 107k # Hx of old mi, per cards # HTN, goal sbp <140 # Dvt ppx lovenox/coumadin The timing of this note does not necessarily reflect the time of the patient was seen. Greatly appreciate consultation. Subjective Constitutional: Denies: no symptoms, chills, fever, malaise, weakness, other HEENT: Denies: no symptoms, eye pain, blurred vision, tearing, double vision, ear pain, ear discharge, nose pain, nose congestion, throat pain, throat swelling, mouth pain, mouth swelling, other Cardiovascular: Denies: no symptoms, chest pain, edema, irregular heart rate, lightheadedness, palpitations, syncope, other Respiratory: Denies: no symptoms, cough, shortness of breath, SOB with excertion, SOB at rest, sputum, wheezing, other Gastrointestinal/Abdominal: Denies: no symptoms, abdomen distended, abdominal pain, black stools, tarry stools, blood in stool, constipated, diarrhea, difficulty swallowing, nausea, poor appetite, poor fluid intake, rectal bleeding , vomiting, other Genitourinary: Denies: no symptoms, burning, discharge, frequency, flank pain, hematuria, incontinence, pain, urgency, other Endocrine: Denies: no symptoms, excessive sweating, flushing, intolerance to cold, intolerance to heat, increased hunger, increased thirst, increased urine, unexplained weight gain, unexplained weight loss, other Allergies: Coded Allergies: No Known Allergies (Unverified , 08/11/12) Subjective 01/18 alert, us abd w/ hsm, coumadin, room air 01/19 breathing better, has been started on higher dose coumadin, inr goal 3-3.5 Objective Objective Current Medications Medications (Trade) Dose Ordered Sig/Hema Route PRN Reason Start Time Stop Time Status Last Admin Dose Admin Acetaminophen (Tylenol) 500 mg Q6H PRN ORAL Mild Pain (Pain Scale 1-3) 01/19/20 02:00 02/16/20 01:59 Acetaminophen/ Hydrocodone Bitart ([place] 5/325) 1 tab Q6H PRN ORAL Severe Pain (Pain Scale 7-10) 01/19/20 08:30 01/26/20 08:29 01/20/20 09:56 Baclofen (Lioresal) 10 mg QHS ORAL 01/18/20 21:00 02/16/20 20:59 01/19/20 20:31 Clonidine HCl (Catapres Tab) 0.1 mg Q4H PRN ORAL htn 01/18/20 20:15 04/17/20 20:14 Heparin Sodium/ Dextrose 500 ml @ 51.12 mls/ hr ADJUST PER PROTOCOL IV 01/20/20 05:15 02/19/20 05:14 01/20/20 10:45 Iohexol (Omnipaque 350 100ml) 100 ml NOW PRN INJ Radiology Procedure 01/19/20 13:00 01/20/20 12:48 Lisinopril (PriniviL) 40 mg DAILY ORAL 01/19/20 09:00 02/17/20 08:59 01/20/20 09:57 Ondansetron HCl (Zofran) 4 mg Q6H PRN IVP Nausea & Vomiting 01/18/20 20:15 02/17/20 20:14 01/19/20 08:45 Warfarin Sodium (Coumadin per pharmacy) 1 ea DAILY PRN MISC Per rx protocol 01/20/20 11:45 02/19/20 11:44 Warfarin Sodium (Coumadin) 5 mg ONCE ORAL 01/20/20 17:00 01/20/20 19:00 Last 24 Hour Vital Signs Date Time Temp Pulse Resp B/P (MAP) Pulse Ox O2 Delivery O2 Flow Rate FiO2 01/20/20 09:57 112/72 01/20/20 09:00 2.0 01/20/20 09:00 Nasal Cannula 2.0 Nasal Cannula 2.0 01/20/20 08:00 97.7 88 20 112/72 (85) 99 01/20/20 08:00 85 01/20/20 04:00 98.0 95 18 138/86 (103) 96 01/20/20 04:00 2.0 01/20/20 04:00 97 01/20/20 00:00 101 01/20/20 00:00 97.7 99 18 140/91 (107) 98 01/19/20 23:27 97.9 01/19/20 20:00 111 01/19/20 20:00 2.0 01/19/20 20:00 97.9 103 18 136/92 (107) 98 01/19/20 16:00 96 01/19/20 16:00 2.0 01/19/20 16:00 98.2 81 18 112/52 (72) 100 01/19/20 12:00 98.7 79 20 123/88 (100) 98 01/19/20 12:00 97 01/19/20 12:00 2.0 01/19/20 08:56 2.0 01/19/20 08:53 Room Air 01/19/20 08:44 121/89 01/19/20 08:00 98.4 101 20 121/89 (100) 98 01/19/20 08:00 111 01/19/20 04:00 Nasal Cannula 2.0 01/19/20 04:00 97.0 104 20 130/83 (99) 98 01/19/20 04:00 95 01/19/20 04:00 2.0 01/19/20 00:00 125 01/19/20 00:00 97.9 108 20 155/95 (115) 98 01/19/20 00:00 Nasal Cannula 2.0 01/18/20 20:00 110 01/18/20 20:00 2.0 01/18/20 20:00 Nasal Cannula 2.0 01/18/20 20:00 97.5 107 20 143/90 (107) 98 01/18/20 16:00 Nasal Cannula 2.0 01/18/20 16:00 2.0 01/18/20 16:00 97.0 108 21 141/92 (108) 97 01/18/20 15:24 94 Intake and Output 01/19/20 01/20/20 19:00 07:00 Intake Total 685.28 ml Output Total 1200 ml 1500 ml Balance -514.72 ml -1500 ml Intake Oral 140 ml IV Total 545.28 ml Output Urine Total 1200 ml 1500 ml # Voids 5 # Bowel Movements 1 Labs Test 01/18/20 01:18 01/18/20 03:30 01/18/20 08:20 01/18/20 11:00 Activated Partial Thromboplast Time 53 SEC (23-33) 139 SEC (23-33) White Blood Count 9.1 K/UL (4.8-10.8) Red Blood Count 4.82 M/UL (4.70-6.10) Hemoglobin 14.8 G/DL (14.2-18.0) Hematocrit 47.1 % (42.0-52.0) Mean Corpuscular Volume 98 FL (80-99) Mean Corpuscular Hemoglobin 30.7 PG (27.0-31.0) Mean Corpuscular Hemoglobin Concent 31.3 G/DL (32.0-36.0) Red Cell Distribution Width 13.2 % (11.6-14.8) Platelet Count 109 K/UL (150-450) Mean Platelet Volume 8.1 FL (6.5-10.1) Neutrophils (%) (Auto) 58.0 % (45.0-75.0) Lymphocytes (%) (Auto) 31.8 % (20.0-45.0) Monocytes (%) (Auto) 8.4 % (1.0-10.0) Eosinophils (%) (Auto) 0.7 % (0.0-3.0) Basophils (%) (Auto) 1.3 % (0.0-2.0) Sodium Level 142 MMOL/L (136-145) Potassium Level 3.8 MMOL/L (3.5-5.1) Chloride Level 107 MMOL/L (98-107) Carbon Dioxide Level 23 MMOL/L (21-32) Anion Gap 12 mmol/L (5-15) Blood Urea Nitrogen 9 mg/dL (7-18) Creatinine 1.1 MG/DL (0.55-1.30) Estimat Glomerular Filtration Rate > 60 mL/min (>60) Glucose Level 109 MG/DL (74-106) Calcium Level 8.9 MG/DL (8.5-10.1) Total Bilirubin 1.9 MG/DL (0.2-1.0) Direct Bilirubin 0.6 MG/DL (0.0-0.3) Aspartate Amino Transf (AST/SGOT) 51 U/L (15-37) Alanine Aminotransferase (ALT/SGPT) 84 U/L (12-78) Alkaline Phosphatase 55 U/L (46-116) Troponin I 0.014 ng/mL (0.000-0.056) 0.012 ng/mL (0.000-0.056) Total Protein 6.5 G/DL (6.4-8.2) Albumin 3.5 G/DL (3.4-5.0) Globulin 3.0 g/dL Albumin/Globulin Ratio 1.2 (1.0-2.7) Test 01/18/20 16:30 01/18/20 19:00 01/18/20 23:10 01/19/20 06:36 Activated Partial Thromboplast Time 49 SEC (23-33) 129 SEC (23-33) 75 SEC (23-33) Troponin I 0.010 ng/mL (0.000-0.056) 0.003 ng/mL (0.000-0.056) 0.001 ng/mL (0.000-0.056) Hepatitis A IgM Antibody Negative (Negative) Hepatitis B Surface Antigen Negative (Negative) Hepatitis B Core IgM Antibody Negative (Negative) Hepatitis C Antibody <0.1 s/co ratio HIV (1&2) Antibody Rapid Negative (NEGATIVE) Test 01/20/20 03:50 01/20/20 11:55 Activated Partial Thromboplast Time 55 SEC (23-33) 102 SEC (23-33) Prothrombin Time 12.5 SEC (9.30-11.50) Prothromb Time International Ratio 1.1 (0.9-1.1) Height (Feet): 5 Height (Inches): 11.00 Weight (Pounds): 308 Objective Physical Exam: Vitals: reviewed General: NAD HEENT: nc, at Neck: supple Chest: clear breath sounds bilaterally Cardiovascular: RRR, no s3, s4 Abdomen: soft, nontender, nd Extremities: no cce, normal range of motion Neuro: alert and oriented Jimbo Mijares MD Jan 20, 2020 12:48
--- NOTE | 2020-01-20 13:11 | General Progress Note ---
Assessment/Plan Assessment/Plan: (1) Left LE pain (2) DVT (3) B/L PE (4) Atypical chest pain Patient to be continued on Wysox as needed. D/w Dr. Del Valle and he concurred. Subjective Date patient seen: Jan 20, 2020 Time patient seen: 12:30 - pm Constitutional: Reports: no symptoms HEENT: Reports: no symptoms Cardiovascular: Reports: no symptoms Respiratory: Reports: no symptoms Gastrointestinal/Abdominal: Reports: no symptoms Genitourinary: Reports: no symptoms Neurologic/Psychiatric: Reports: no symptoms Endocrine: Reports: no symptoms Hematologic/Lymphatic: Reports: no symptoms Allergies: Coded Allergies: No Known Allergies (Unverified , 08/11/12) Subjective Patient is doing better and pain has been tolerated on the Wysox as needed. No new complaints at this time. Objective Last 24 Hour Vital Signs Date Time Temp Pulse Resp B/P (MAP) Pulse Ox O2 Delivery O2 Flow Rate FiO2 01/20/20 09:57 112/72 01/20/20 09:00 2.0 01/20/20 09:00 Nasal Cannula 2.0 Nasal Cannula 2.0 01/20/20 08:00 97.7 88 20 112/72 (85) 99 01/20/20 08:00 85 01/20/20 04:00 98.0 95 18 138/86 (103) 96 01/20/20 04:00 2.0 01/20/20 04:00 97 01/20/20 00:00 101 01/20/20 00:00 97.7 99 18 140/91 (107) 98 01/19/20 23:27 97.9 01/19/20 20:00 111 01/19/20 20:00 2.0 01/19/20 20:00 97.9 103 18 136/92 (107) 98 01/19/20 16:00 96 01/19/20 16:00 2.0 01/19/20 16:00 98.2 81 18 112/52 (72) 100 Intake and Output 01/19/20 01/20/20 19:00 07:00 Intake Total 685.28 ml Output Total 1200 ml 1500 ml Balance -514.72 ml -1500 ml Intake Oral 140 ml IV Total 545.28 ml Output Urine Total 1200 ml 1500 ml # Voids 5 # Bowel Movements 1 Laboratory Tests 01/20/20 03:50: Activated Partial Thromboplast Time 55H 01/20/20 11:55: Activated Partial Thromboplast Time 102H, Prothrombin Time 12.5H, Prothromb Time International Ratio 1.1 Height (Feet): 5 Height (Inches): 11.00 Weight (Pounds): 308 General Appearance: no apparent distress, alert EENT: PERRL/EOMI, normal ENT inspection Neck: non-tender, normal alignment Cardiovascular: normal rate, regular rhythm Respiratory/Chest: decreased breath sounds Abdomen: non tender, soft Extremities: normal range of motion Edema: no edema noted Generalized Neurologic: alert, oriented x 3 Skin: warm/dry Emory Rhodes Jan 20, 2020 13:10
[2020-01-20] MEDS ORDERED: TYLENOL EXTRA500 MG ORAL (13:23)
[2020-01-20 16:00] VITALS: BP 136/90
[2020-01-20] MEDS ORDERED: Warfarin Sodium 5mg ORAL SCH (17:00)
--- NOTE | 2020-01-23 10:04 | Discharge Summary ---
Discharge Summary Discharge Summary _ DATE OF ADMISSION: 01/17/2020 DATE OF DISCHARGE: 01/20/2020 DISCHARGED BY: Dr. Hayes REASON FOR ADMISSION: 24 years old male with past medical history of hypertension, antiphospholipid syndrome, history of PE and DVT, pulmonary hypertension, obesity, presented due to shortness of breath for the past few weeks. Symptoms were worse with exertion. Patient reported chest tightness. Patient reported episode of nausea when climbing stairs. He denied fever and chills. No cough or congestion. Patient was on anticoagulation for previously diagnosed PE and DVT, which originally was several years ago. Upon evaluation patient was tachycardic with heart rate 111 ,mild tachypnea with respiratory rate 22 , pulse oximetry was 93% on the room air, blood pressure was 141/100. Laboratory work-up revealed no leukocytosis ,stable hemoglobin ,hematocrit . D-dimer 2.43. INR 1.2. Stable renal parameters and electrolytes. Glucose 117. Troponin 0.012 Urine toxicology screen was positive for marijuana. Chest x-ray revealed no acute abnormalities. CT angiogram of the chest demonstrated extensive bilateral pulmonary emboli with evidence of right heart strain. Patient subsequently admitted to telemetry floor for further management . CONSULTANTS: mechanical expert Dr. Colby pulmonary Dr. Quiroga baker head/oncologist Dr. Mijares pain specialist Dr. Del Valle [facility] COURSE: Patient admitted to monitored floor. Patient started on heparin drip. Serial troponin were negative. Patient denied chest pain. EKG showed right bundle branch block and left anterior fascicular block. No syncope. Blood pressure was managed with TYRELL inhibitor. Clonidine was on board as needed for blood pressure spikes. Echocardiogram revealed preserved ejection fraction of 55%. No evidence of left ventricular hypertrophy. Right ventricular enlargement and hypokinesis. Right ventricular systolic pressure of 93 consistent with severe pulmonary hypertension. Supplemental oxygen provided and titrated to keep pulse oximetry above 92%. Pulmonary toilet was on board as needed. Pulse oximetry remained stable on 2 L of oxygen via nasal cannula. Heparin drip continued and subsequently was switched to Coumadin to keep INR in therapeutic range. Pain management was addressed as per pain specialist. Transfer was arranged to [facility] . Patient was stable for transfer. 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 DISCHARGE INSTRUCTIONS: Patient was discharged to [facility] for further management. I have been assigned to dictate discharge summary for this account. I was not involved in the patient's management. Sara Brian NP Jan 23, 2020 10:04
== END 2020-01-20 18:05 | DRG 134 ==
LOC: EMR 12:20 → 2E 15:14 → 2W 15:15 → EDBEDREQ 15:31 → 2E 01-18 20:15
DX: I26.99 Other pulmonary embolism without acute cor pulmonale (principal); D68.61 Antiphospholipid syndrome; I45.2 Bifascicular block; I10 Essential (primary) hypertension; M32.9 Systemic lupus erythematosus, unspecified; G89.4 Chronic pain syndrome; I25.2 Old myocardial infarction; Z86.711 Personal history of pulmonary embolism; Z86.718 Personal history of other venous thrombosis and embolism; M19.90 Unspecified osteoarthritis, unspecified site; D69.6 Thrombocytopenia, unspecified; I27.20 Pulmonary hypertension, unspecified
CPT/HCPCS: 36415; 71045; 71275; 76700; 80053; 80307; 81003; 82248; 82550; 84484; 85025; 85379; 85610; 85730; 86140; 86703; 86705; 86709; 86803; 87340; 93005; 93306; 96374; 99291; J2405; U0002

== ENCOUNTER 2020-04-13 03:43 | Emergency (ER) | payer MEDICAID ==
[~2020-04-13] VITALS: Ht 180.3 cm; Wt 132.9 kg
[~2020-04-13 03:43] MED LIST changes: +LISINOPRIL20 MG ORAL; +TYLENOL EXTRA500 MG ORAL
[2020-04-13 04:00] VITALS: BP 141/78
[2020-04-13] MEDS ORDERED: Methocarbamol 750mg tab ORAL ONE (04:00)
[2020-04-13] MEDS ORDERED: Omnipaque 350 100ml vial INJ PRN (04:00)
[2020-04-13] MEDS ORDERED: Ketorolac 30mg Inj IV ONE (04:00)
--- NOTE | 2020-04-13 04:05 | Emergency Room Report ---
History of Present Illness General Chief Complaint: Back Pain-No Injury Source: Patient Present Illness HPI Disclaimer: Please note that this report is being documented using [employer] technology. This can lead to erroneous entry secondary to incorrect interpretation by the dictating instrument. HPI: 24-year-old male with a history of antiphospholipid syndrome with prior PE/ DVT currently anticoagulated on Coumadin presents for evaluation of atraumatic back pain. He states yesterday he was putting on his socks sitting in a chair bending over suddenly felt pain in the lower back. Is in the lower pelvis midline slightly more to the right side. Pain does not radiate. Exacerbated by ambulating, laying down. Cannot find a comfortable position. Has not taken any medication prior to arrival. Denies urinary retention or fecal incontinence. He reports pressure in the lower pelvis. Denies numbness or tingling. Denies fever, chills. Denies nausea, vomiting, dysuria, urinary frequency urgency PMH: Antiphospholipid syndrome, prior PE and DVT PSH: Reviewed Allergies: Reviewed Social Hx: Reviewed Allergies: Coded Allergies: No Known Allergies (Unverified , 08/11/12) COVID-19 Screening Contact w/high risk pt: No Recent Travel to affected area: No Experienced COVID-19 symptoms?: No COVID-19 symptoms experienced: Shortness of Breath COVID-19 Testing performed TALENT ENGINEER: No Nursing Documentation-PMH Hx Cardiac Problems: Yes Hx Hypertension: Yes Hx Pacemaker: No - Antiphospholipid syndrome Hx Cancer: No Hx Gastrointestinal Problems: Yes - Gastroenteritis Hx Neurological Problems: No Review of Systems All Other Systems: negative except mentioned in HPI Physical Exam Vital Signs Date Time Temp Pulse Resp B/P (MAP) Pulse Ox O2 Delivery O2 Flow Rate FiO2 04/13/20 03:47 97.9 76 20 141/78 (99) 99 Room Air General: Awake and alert, no acute distress HEENT: NC/AT. EOMI. Cardiovascular: RRR. S1 and S2 normal. No murmur appreciated Resp: Normal work of breathing. No cough, wheezing or crackles appreciated Abdomen: Abdomen is soft, nondistended. Morbidly obese abdomen. Mildly tender suprapubic region. Skin: Intact. No abrasions, laceration or rash over the exposed skin MSK: Normal tone and bulk. Moving all extremities. No obvious deformity. Neuro: Awake and alert. Mentating appropriately. Intact sensation over the lower extremities bilaterally across the dermatomes. Spine: There is tenderness palpation in the lower lumbar spine. Moderate paraspinal tenderness bilaterally, right slightly greater than left. Medical Decision Making Diagnostic Impression: Primary Impression: Strain of muscle, fascia and tendon of lower back, initial encounter ER Course 24-year-old male presents for evaluation of back pain. No trauma reported. Differential includes was not limited to lower back strain, muscle spasm, sciatica, herniated disc, UTI to name a few. No clinical evidence of cauda equina syndrome, spinal epidural abscess or other severe pathology. Patient's last CT scan January 2020 did not show evidence of AAA or other vascular abnormalities. Physical exam is most consistent with lower back strain and spasm. Patient treated with Toradol, Robaxin, lidocaine patch. UA unremarkable. Patient was found sleeping comfortably on reevaluation. Will be discharged home to follow-up with PMD. Discussed reasons to return to the ED. He understands and agrees with treatment plan. Last Vital Signs Date Time Temp Pulse Resp B/P (MAP) Pulse Ox O2 Delivery O2 Flow Rate FiO2 04/13/20 03:47 97.9 76 20 141/78 (99) 99 Room Air Disposition: HOME, SELF-CARE Condition: Stable Scripts Methocarbamol* (ROBAXIN-750*) 750 Mg Tablet 750 MG PO QID, #28 TAB 0 Refills Prov: Juan Johnson MD 04/13/20 Lidocaine Patch* (Lidoderm Patch*) 1 Each Adh..patch 1 PATCH TOPIC DAILY, #30 PATCH Patch(es) may remain in place for up to 12 hours in any 24-hour period. Prov: Juan Johnson MD 04/13/20 Ibuprofen* (MOTRIN*) 600 Mg Tablet 600 MG ORAL Q6H PRN for For Pain, #30 TAB 0 Refills Prov: Juan Johnson MD 04/13/20 Referrals: [facility],REFERRING (PCP) Juan Johnson MD Apr 13, 2020 04:05
[2020-04-13] MEDS ORDERED: ROBAXIN-750750 MG PO (05:04)
[2020-04-13] MEDS ORDERED: LIDODERM700 M1 TOPIC (05:04)
[2020-04-13] MEDS ORDERED: IBUPROFEN600 M1 ORAL (05:04)
[2020-04-13 05:09] LABS: APPEARANCE,URINE CLEAR; BILIRUBIN, URINE 1+ (NEGATIVE); GLUCOSE, URINE (UA) NEGATIVE (NEGATIVE); KETONES,URINE NEGATIVE (NEGATIVE); LEUKOCYTE ESTERASE ,URINE 1+ (NEGATIVE); NITRITE,URINE NEGATIVE (NEGATIVE); PH,URINE 5 (4.5-8.0); PROTEIN,URINE 2+ (NEGATIVE); UROBILINOGEN,URINE 1 MG/DL (0.0-1.0)
[2020-04-13 05:10] LABS: COLOR,URINE YELLOW
[2020-04-13 05:29] VITALS: BP 132/70
[2020-04-13] MEDS ORDERED: LISINOPRIL20 MG ORAL (19:36)
[2020-04-13] MEDS ORDERED: WARFARIN SODIU7.5 MG ORAL (19:36)
[2020-04-13] MEDS ORDERED: ADEMPAS2 MG PO (19:36)
[2020-04-13] MEDS ORDERED: BACLOFEN10 MG ORAL (19:36)
== END 2020-04-13 05:30 | disposition home or self-care (01) ==
LOC: EMR 03:57
DX: S39.012A Strain of muscle, fascia and tendon of lower back, initial encounter (principal); I10 Essential (primary) hypertension; D68.61 Antiphospholipid syndrome; X50.1XXA Overexertion from prolonged static or awkward postures, initial encounter; Y93.89 Activity, other specified; Y92.019 Unspecified place in single-family (private) house as the place of occurrence of the external cause
CPT/HCPCS: 81003; 96374; J1885; Z7502; 99284